=== PATIENT | female | born 1960 | race African-American/Black ===

== ENCOUNTER → 2016-03-08 | Outpatient (CLI) | payer BC ==
[2016-03-08 11:56] LABS: ABSOLUTE EOSINOPHILS # (AUTO) 0.1 10^3/uL (0.0-0.6); ABSOLUTE LYMPHOCYTES (AUTO) 1.5 10^3/uL (0.5-4.7); ABSOLUTE MONOCYTES (AUTO) 0.4 10^3/uL (0.1-1.4); ABSOLUTE NEUT (AUTO) 1.3 10^3/uL (1.7-8.2); BASOPHILS % (AUTO) 0.5 % (0-2); EOSINOPHILS % (AUTO) 3.4 % (0-6); HEMATOCRIT 36.2 % (36.0-47.0); HEMOGLOBIN 12.5 g/dL (12.0-15.5); HGB HCT DIFFERENCE 1.3; LYMPHOCYTES % (AUTO) 45.8 % (13-45); MEAN CORPUSCULAR HEMOGLOBIN 30.7 pg (27.0-33.4); MEAN CORPUSCULAR HGB CONC 34.4 g/dL (32.0-36.0); MEAN CORPUSCULAR VOLUME 89 fl (80-97); MONOCYTES % (AUTO) 11.5 % (3-13); RED BLOOD COUNT 4.06 10^6/uL (3.72-5.28); RED CELL DISTRIBUTION WIDTH 12.7 % (11.5-14.0); SEGMENTED NEUTROPHILS % (AUTO) 38.8 % (42-78); WHITE BLOOD COUNT 3.2 10^3/uL (4.0-10.5)
[2016-03-08 12:20] LABS: ALANINE AMINOTRANSFERASE 30 U/L (9-52); ALBUMIN 3.7 g/dL (3.5-5.0); ALKALINE PHOSPHATASE 91 U/L (38-126); ANION GAP 11 (5-19); ASPARTATE AMINO TRANSFERASE 33 U/L (14-36); BILIRUBIN,TOTAL 0.3 mg/dL (0.2-1.3); BLOOD UREA NITROGEN 20 mg/dL (7-20); CALCIUM 9.5 mg/dL (8.4-10.2); CARBON DIOXIDE 26 mmol/L (22-30); CHLORIDE 108 mmol/L (98-107); CHOLESTEROL 214.42 mg/dL (0-200); CREATININE RESULT 0.92 mg/dL (0.52-1.25); Direct HDL 35 mg/dL (>40); GLUCOSE 112 mg/dL (75-110); POTASSIUM 4.2 mmol/L (3.6-5.0); SODIUM 144.5 mmol/L (137-145); TOTAL PROTEIN 9.4 g/dL (6.3-8.2); TRIGLYCERIDES 88 mg/dL (<150)
[2016-03-08 12:31] LABS: DIRECT LDL 142 mg/dL (<100)
== END ==
LOC: OD 10:34
PROVIDERS: ATTEND Physician Assistant
DX: E13.9 Other specified diabetes mellitus without complications (principal); E66.9 Obesity, unspecified; E78.5 Hyperlipidemia, unspecified
CPT/HCPCS: 36415; 80053; 80061; 83036; 84443; 85025

== ENCOUNTER → 2016-07-08 | Outpatient (CLI) | payer BC ==
[2016-07-08 15:51] LABS: BLOOD UREA NITROGEN 19 mg/dL (7-20); CALCIUM 9.7 mg/dL (8.4-10.2); GLUCOSE 117 mg/dL (75-110)
[2016-07-08 15:52] LABS: ALANINE AMINOTRANSFERASE 85 U/L (9-52); ALBUMIN 3.9 g/dL (3.5-5.0); ALKALINE PHOSPHATASE 156 U/L (38-126); ANION GAP 11 (5-19); ASPARTATE AMINO TRANSFERASE 72 U/L (14-36); CARBON DIOXIDE 24 mmol/L (22-30); CHLORIDE 109 mmol/L (98-107); CREATININE RESULT 0.89 mg/dL (0.52-1.25); POTASSIUM 4.3 mmol/L (3.6-5.0); SODIUM 144.1 mmol/L (137-145)
[2016-07-08 15:53] LABS: BILIRUBIN,DIRECT 0.3 mg/dL (0.0-0.4); BILIRUBIN,TOTAL 0.5 mg/dL (0.2-1.3); CHOLESTEROL 157.48 mg/dL (0-200); DIRECT LDL 72 mg/dL (<100); TOTAL PROTEIN 9.7 g/dL (6.3-8.2); TRIGLYCERIDES 57 mg/dL (<150); VLDL CHOLESTEROL 11.4 mg/dL (10-31)
[2016-07-08 15:54] LABS: Direct HDL 37 mg/dL (>40)
[2016-07-08 15:59] LABS: ABSOLUTE EOSINOPHILS # (AUTO) 0.1 10^3/uL (0.0-0.6); ABSOLUTE LYMPHOCYTES (AUTO) 1.2 10^3/uL (0.5-4.7); ABSOLUTE MONOCYTES (AUTO) 0.3 10^3/uL (0.1-1.4); BASOPHILS % (AUTO) 0.7 % (0-2); EOSINOPHILS % (AUTO) 2.6 % (0-6); HEMATOCRIT 34.2 % (36.0-47.0); HEMOGLOBIN 11.7 g/dL (12.0-15.5); HGB HCT DIFFERENCE 0.9; LYMPHOCYTES % (AUTO) 33.6 % (13-45); MEAN CORPUSCULAR HEMOGLOBIN 30.3 pg (27.0-33.4); MEAN CORPUSCULAR HGB CONC 34.4 g/dL (32.0-36.0); MEAN CORPUSCULAR VOLUME 88 fl (80-97); MONOCYTES % (AUTO) 8.6 % (3-13); RED BLOOD COUNT 3.88 10^6/uL (3.72-5.28); RED CELL DISTRIBUTION WIDTH 12.7 % (11.5-14.0); SEGMENTED NEUTROPHILS % (AUTO) 54.5 % (42-78); WHITE BLOOD COUNT 3.6 10^3/uL (4.0-10.5)
== END ==
LOC: OD 11:23
PROVIDERS: ATTEND Physician Assistant
DX: E78.5 Hyperlipidemia, unspecified (principal); E13.9 Other specified diabetes mellitus without complications
CPT/HCPCS: 36415; 80053; 80061; 83036; 85025

== ENCOUNTER → 2016-07-27 | Outpatient (CLI) | payer BC ==
[2016-07-27 20:16] LABS: ALANINE AMINOTRANSFERASE 90 U/L (9-52); ALBUMIN 4.1 g/dL (3.5-5.0); ALKALINE PHOSPHATASE 146 U/L (38-126); ANION GAP 11 (5-19); ASPARTATE AMINO TRANSFERASE 69 U/L (14-36); BILIRUBIN,DIRECT 0.3 mg/dL (0.0-0.4); BILIRUBIN,TOTAL 0.5 mg/dL (0.2-1.3); BLOOD UREA NITROGEN 23 mg/dL (7-20); CALCIUM 10.2 mg/dL (8.4-10.2); CARBON DIOXIDE 24 mmol/L (22-30); CHLORIDE 110 mmol/L (98-107); CREATININE RESULT 1.15 mg/dL (0.52-1.25); GLUCOSE 92 mg/dL (75-110); POTASSIUM 4.1 mmol/L (3.6-5.0); SODIUM 145.4 mmol/L (137-145); TOTAL PROTEIN 10.3 g/dL (6.3-8.2)
== END ==
LOC: LAB 19:42
PROVIDERS: ATTEND Physician Assistant
DX: R94.5 Abnormal results of liver function studies (principal)
CPT/HCPCS: 36415; 80053

== ENCOUNTER → 2016-08-18 | Outpatient (CLI) | payer BC ==
--- NOTE | 2016-08-18 09:16 | RADIOLOGY REPORT (SQ) ---
EXAM DESCRIPTION: U/S ABDOMEN LIMITED W/O DOP COMPLETED DATE/TIME: 08/18/2016 8:41 am REASON FOR STUDY: ABN LFT R94.5 ABNORMAL RESULTS OF LIVER FUNCTION STUDIES COMPARISON: None. TECHNIQUE: Dynamic and static grayscale images acquired of the abdomen and recorded on PACS. Additio nal selected color Doppler and spectral images recorded. LIMITATIONS: Midline bowel gas FINDINGS: PANCREAS: Midline pancreas unremarkable LIVER: Mild diffuse increased echogenicity from diffuse hepatocellular disease. No focal masses. No biliary ductal dilatation. LIVER VASCULATURE: Normal directional flow of the main portal vein and hepatic veins. GALLBLADDER: No stones. Normal wall thickness. No pericholecystic fluid. ULTRASOUND-DETECTED JUAN'S SIGN: Negative. INTRAHEPATIC DUCTS AND COMMON DUCT: CBD and intrahepatic ducts normal caliber. No filling defects. D istal most common duct not well seen due to duodenum gas INFERIOR VENA CAVA: Not well seen AORTA: No aneurysm. RIGHT KIDNEY: Normal size. Normal echogenicity. No solid or suspicious masses. No hydronephrosis. No calcifications. PERITONEAL AND RIGHT PLEURAL SPACE: No ascites or effusions. OTHER: No other significant findings. IMPRESSION: Mild increased echogenicity of the liver, question diffuse hepatocellular disease. TECHNICAL DOCUMENTATION: JOB ID: [id number] [employer]- All Rights Reserved
== END ==
LOC: RAD 07:42
PROVIDERS: ATTEND Physician Assistant
DX: R94.5 Abnormal results of liver function studies (principal)
CPT/HCPCS: 76705

== ENCOUNTER → 2016-08-27 | Outpatient (CLI) | payer BC ==
[2016-08-27 13:16] LABS: ALANINE AMINOTRANSFERASE 55 U/L (9-52); ALBUMIN 3.9 g/dL (3.5-5.0); ALKALINE PHOSPHATASE 109 U/L (38-126); ANION GAP 13 (5-19); ASPARTATE AMINO TRANSFERASE 48 U/L (14-36); BILIRUBIN,DIRECT 0.3 mg/dL (0.0-0.4); BILIRUBIN,TOTAL 0.5 mg/dL (0.2-1.3); BLOOD UREA NITROGEN 17 mg/dL (7-20); CALCIUM 9.5 mg/dL (8.4-10.2); CARBON DIOXIDE 25 mmol/L (22-30); CHLORIDE 107 mmol/L (98-107); CREATININE RESULT 0.91 mg/dL (0.52-1.25); GLUCOSE 111 mg/dL (75-110); POTASSIUM 4.3 mmol/L (3.6-5.0); SODIUM 145.1 mmol/L (137-145); TOTAL PROTEIN 10.5 g/dL (6.3-8.2)
== END ==
LOC: OD 11:31
PROVIDERS: ATTEND Physician Assistant
DX: R94.5 Abnormal results of liver function studies (principal)
CPT/HCPCS: 36415; 80053; 80074

== ENCOUNTER → 2017-01-19 | Outpatient (CLI) | payer BC ==
[2017-01-19 11:54] LABS: ABSOLUTE EOSINOPHILS # (AUTO) 0.1 10^3/uL (0.0-0.6); ABSOLUTE LYMPHOCYTES (AUTO) 1.3 10^3/uL (0.5-4.7); ABSOLUTE MONOCYTES (AUTO) 0.2 10^3/uL (0.1-1.4); ABSOLUTE NEUT (AUTO) 1.1 10^3/uL (1.7-8.2); BASOPHILS % (AUTO) 1.1 % (0-2); EOSINOPHILS % (AUTO) 4.1 % (0-6); HEMATOCRIT 33.7 % (36.0-47.0); HEMOGLOBIN 11.8 g/dL (12.0-15.5); HGB HCT DIFFERENCE 1.7; LYMPHOCYTES % (AUTO) 47.5 % (13-45); MEAN CORPUSCULAR HEMOGLOBIN 31.4 pg (27.0-33.4); MEAN CORPUSCULAR VOLUME 90 fl (80-97); MONOCYTES % (AUTO) 7.8 % (3-13); RED BLOOD COUNT 3.77 10^6/uL (3.72-5.28); RED CELL DISTRIBUTION WIDTH 13.3 % (11.5-14.0); SEGMENTED NEUTROPHILS % (AUTO) 39.5 % (42-78); WHITE BLOOD COUNT 2.7 10^3/uL (4.0-10.5)
[2017-01-19 12:20] LABS: ALANINE AMINOTRANSFERASE 37 U/L (9-52); ALBUMIN 3.9 g/dL (3.5-5.0); ALKALINE PHOSPHATASE 90 U/L (38-126); ANION GAP 11 (5-19); ASPARTATE AMINO TRANSFERASE 39 U/L (14-36); BILIRUBIN,DIRECT 0.3 mg/dL (0.0-0.4); BILIRUBIN,TOTAL 0.5 mg/dL (0.2-1.3); BLOOD UREA NITROGEN 19 mg/dL (7-20); CALCIUM 9.2 mg/dL (8.4-10.2); CARBON DIOXIDE 28 mmol/L (22-30); CHLORIDE 108 mmol/L (98-107); CHOLESTEROL 224.55 mg/dL (0-200); CREATININE RESULT 0.98 mg/dL (0.52-1.25); Direct HDL 48 mg/dL (>40); GLUCOSE 112 mg/dL (75-110); POTASSIUM 3.8 mmol/L (3.6-5.0); SODIUM 147.3 mmol/L (137-145); TOTAL PROTEIN 8.9 g/dL (6.3-8.2); TRIGLYCERIDES 77 mg/dL (<150)
[2017-01-19 12:31] LABS: DIRECT LDL 130 mg/dL (<100)
== END ==
LOC: OD 09:42
PROVIDERS: ATTEND Physician Assistant
DX: E78.5 Hyperlipidemia, unspecified (principal); E13.9 Other specified diabetes mellitus without complications; E66.9 Obesity, unspecified
CPT/HCPCS: 36415; 80053; 80061; 83036; 84443; 85025

== ENCOUNTER → 2017-03-15 | Outpatient (CLI) | payer BC ==
[2017-03-15 22:16] LABS: ABSOLUTE EOSINOPHILS # (AUTO) 0.1 10^3/uL (0.0-0.6); ABSOLUTE LYMPHOCYTES (AUTO) 1.5 10^3/uL (0.5-4.7); ABSOLUTE MONOCYTES (AUTO) 0.3 10^3/uL (0.1-1.4); ABSOLUTE NEUT (AUTO) 1.5 10^3/uL (1.7-8.2); BASOPHILS % (AUTO) 0.7 % (0-2); EOSINOPHILS % (AUTO) 2.7 % (0-6); HEMATOCRIT 34.5 % (36.0-47.0); LYMPHOCYTES % (AUTO) 43.1 % (13-45); MEAN CORPUSCULAR HEMOGLOBIN 31.6 pg (27.0-33.4); MEAN CORPUSCULAR HGB CONC 34.7 g/dL (32.0-36.0); MEAN CORPUSCULAR VOLUME 91 fl (80-97); MONOCYTES % (AUTO) 9.4 % (3-13); PLATELET COUNT 202 10^3/uL (150-450); RED BLOOD COUNT 3.79 10^6/uL (3.72-5.28); RED CELL DISTRIBUTION WIDTH 13.2 % (11.5-14.0); SEGMENTED NEUTROPHILS % (AUTO) 44.1 % (42-78); TOTAL CELLS COUNTED % (AUTO) 100 %; WHITE BLOOD COUNT 3.5 10^3/uL (4.0-10.5)
== END ==
LOC: LAB 21:59
PROVIDERS: ATTEND Physician Assistant
DX: D72.819 Decreased white blood cell count, unspecified (principal)
CPT/HCPCS: 36415; 85025

== ENCOUNTER 2017-04-18 09:00 | Day surgery (SDC) | payer BC ==
[~2017-04-18 09:00] MED LIST: PROPOFOL INJ 200 MG/20 ML VIAL IV ONE
[2017-04-18] MEDS ORDERED: ONDANSETRON HCL INJ/PF 4 MG/2 ML SDV ONE (11:04)
[2017-04-18 11:46] VITALS: BP 129/79
--- NOTE | 2017-04-18 14:40 | Operative Report ---
Operative Report DATE OF SURGERY: 04/18/17 Operative Report: The risks, benefits and alternatives of the procedure including risks of bleeding, perforation requiring surgery are explained to the patient in detail and informed consent was obtained. Patient was taken back to the endoscopy suite and placed in the left, lateral decubital position. Timeout was called. Propofol medications administered. A rectal examination is done which did not reveal any masses, tears or fissures. An Olympus videoscope was inserted into the patient's rectum. The scope was then carefully advanced all the way to the cecum. The cecum was identified by the usual anatomical landmarks including the ileocecal valve as well as the appendiceal office. Photodocumentation is obtained. Scope was then sequentially pulled back via the various segments of the colon including the ascending colon, hepatic flexure, transverse colon, splenic flexure, descending colon finding to the rectosigmoid portions of the colon. Retroflexion maneuvers performed. PREOPERATIVE DIAGNOSIS: Personal history of polyps POSTOPERATIVE DIAGNOSIS: Colon polyp is removed via biopsy forceps. Diverticulosis. Internal hemorrhoids OPERATION: Colonoscopy with biopsy SURGEON: SEBASTIÁN WAGNER ANESTHESIA: LMAC TISSUE REMOVED OR ALTERED: As noted above. COMPLICATIONS: None. ESTIMATED BLOOD LOSS: None. INTRAOPERATIVE FINDINGS: As noted above. PROCEDURE: Patient tolerated procedure well. No immediate postprocedure complications are noted. Patient discharged in good condition. Discharge date 04/18/2017. Discharge diet: Regular. Discharge activity: Regular. 2-3 week follow-up to discuss findings. Patient is instructed call the office or proceed to the emergency room should there be any further problems or questions. 3-5 year surveillance colonoscopy. We will wait on exact pathology.
== END 2017-04-18 11:45 | disposition home or self-care (01) ==
LOC: END 09:00
PROVIDERS: ATTEND Internal Medicine Gastroenterology
PROC: 0DBP8ZX Excision of Rectum, Via Natural or Artificial Opening Endoscopic, Diagnostic (ICD-10-PCS; principal; 2017-04-18 11:00)
DX: Z12.11 Encounter for screening for malignant neoplasm of colon (principal); K63.5 Polyp of colon; K57.30 Diverticulosis of large intestine without perforation or abscess without bleeding; K64.8 Other hemorrhoids; R01.1 Cardiac murmur, unspecified; E66.9 Obesity, unspecified; Z79.899 Other long term (current) drug therapy; Z68.41 Body mass index [BMI] 40.0-44.9, adult
CPT/HCPCS: 45380; 88305 ×2; J2405; J2704; 811

== ENCOUNTER → 2017-07-13 | Outpatient (CLI) | payer BC ==
[2017-07-13 22:21] LABS: ABSOLUTE EOSINOPHILS # (AUTO) 0.2 10^3/uL (0.0-0.6); ABSOLUTE LYMPHOCYTES (AUTO) 1.4 10^3/uL (0.5-4.7); ABSOLUTE MONOCYTES (AUTO) 0.3 10^3/uL (0.1-1.4); BASOPHILS % (AUTO) 0.6 % (0-2); EOSINOPHILS % (AUTO) 4.6 % (0-6); HEMOGLOBIN 11.8 g/dL (12.0-15.5); LYMPHOCYTES % (AUTO) 36.9 % (13-45); MEAN CORPUSCULAR HGB CONC 34.8 g/dL (32.0-36.0); MEAN CORPUSCULAR VOLUME 89 fl (80-97); MONOCYTES % (AUTO) 7.5 % (3-13); PLATELET COUNT 208 10^3/uL (150-450); RED BLOOD COUNT 3.81 10^6/uL (3.72-5.28); SEGMENTED NEUTROPHILS % (AUTO) 50.4 % (42-78); TOTAL CELLS COUNTED % (AUTO) 100 %; WHITE BLOOD COUNT 3.9 10^3/uL (4.0-10.5)
[2017-07-13 22:28] LABS: ALANINE AMINOTRANSFERASE 34 U/L (9-52); ALBUMIN 4.2 g/dL (3.5-5.0); ALKALINE PHOSPHATASE 93 U/L (38-126); ANION GAP 12 (5-19); ASPARTATE AMINO TRANSFERASE 40 U/L (14-36); BILIRUBIN,DIRECT 0.3 mg/dL (0.0-0.4); BILIRUBIN,TOTAL 0.3 mg/dL (0.2-1.3); BLOOD UREA NITROGEN 23 mg/dL (7-20); CALCIUM 9.5 mg/dL (8.4-10.2); CARBON DIOXIDE 25 mmol/L (22-30); CHLORIDE 109 mmol/L (98-107); GLUCOSE 110 mg/dL (75-110); POTASSIUM 4.3 mmol/L (3.6-5.0); SODIUM 146.2 mmol/L (137-145); TOTAL PROTEIN 10.5 g/dL (6.3-8.2); TRIGLYCERIDES 117 mg/dL (<150)
[2017-07-13 22:40] LABS: DIRECT LDL 102 mg/dL (<100)
== END ==
LOC: LAB 22:03
PROVIDERS: ATTEND Physician Assistant
DX: E78.5 Hyperlipidemia, unspecified (principal); E13.9 Other specified diabetes mellitus without complications
CPT/HCPCS: 36415; 80053; 80061; 83036; 85025

== ENCOUNTER → 2017-10-17 | Outpatient (CLI) | payer BC ==
[2017-10-17 10:14] LABS: ABSOLUTE EOSINOPHILS # (AUTO) 0.2 10^3/uL (0.0-0.6); ABSOLUTE LYMPHOCYTES (AUTO) 1.4 10^3/uL (0.5-4.7); ABSOLUTE MONOCYTES (AUTO) 0.3 10^3/uL (0.1-1.4); BASOPHILS % (AUTO) 0.7 % (0-2); EOSINOPHILS % (AUTO) 4.3 % (0-6); HEMATOCRIT 33.7 % (36.0-47.0); HEMOGLOBIN 11.9 g/dL (12.0-15.5); LYMPHOCYTES % (AUTO) 35.8 % (13-45); MEAN CORPUSCULAR HEMOGLOBIN 31.6 pg (27.0-33.4); MEAN CORPUSCULAR HGB CONC 35.2 g/dL (32.0-36.0); MEAN CORPUSCULAR VOLUME 90 fl (80-97); MONOCYTES % (AUTO) 7.8 % (3-13); PLATELET COUNT 207 10^3/uL (150-450); RED BLOOD COUNT 3.76 10^6/uL (3.72-5.28); RED CELL DISTRIBUTION WIDTH 12.6 % (11.5-14.0); SEGMENTED NEUTROPHILS % (AUTO) 51.4 % (42-78); TOTAL CELLS COUNTED % (AUTO) 100 %; WHITE BLOOD COUNT 3.9 10^3/uL (4.0-10.5)
[2017-10-17 10:49] LABS: ALANINE AMINOTRANSFERASE 18 U/L (9-52); ALBUMIN 3.8 g/dL (3.5-5.0); ALKALINE PHOSPHATASE 84 U/L (38-126); ANION GAP 12 (5-19); ASPARTATE AMINO TRANSFERASE 30 U/L (14-36); BILIRUBIN,DIRECT 0.2 mg/dL (0.0-0.4); BILIRUBIN,TOTAL 0.3 mg/dL (0.2-1.3); BLOOD UREA NITROGEN 17 mg/dL (7-20); CALCIUM 9.2 mg/dL (8.4-10.2); CARBON DIOXIDE 22 mmol/L (22-30); CHLORIDE 112 mmol/L (98-107); CHOLESTEROL 170.57 mg/dL (0-200); GLUCOSE 119 mg/dL (75-110); POTASSIUM 4.2 mmol/L (3.6-5.0); SODIUM 145.7 mmol/L (137-145); TOTAL PROTEIN 10.2 g/dL (6.3-8.2); TRIGLYCERIDES 67 mg/dL (<150)
[2017-10-17 11:00] LABS: DIRECT LDL 94 mg/dL (<100)
[2017-10-18 10:20] LABS: IRON(TIBC) 80.1 ug/dL (37-170)
== END ==
LOC: LAB 10:01
PROVIDERS: ATTEND Family Medicine
DX: N28.9 Disorder of kidney and ureter, unspecified (principal); E13.9 Other specified diabetes mellitus without complications; E78.5 Hyperlipidemia, unspecified; D64.9 Anemia, unspecified
CPT/HCPCS: 36415; 80053; 80061; 82607; 82728; 83036; 83540; 83550; 85025

== ENCOUNTER → 2017-11-25 | Outpatient (CLI) | payer BC ==
[2017-11-25 19:18] LABS: ABSOLUTE EOSINOPHILS # (AUTO) 0.1 10^3/uL (0.0-0.6); ABSOLUTE LYMPHOCYTES (AUTO) 1.4 10^3/uL (0.5-4.7); ABSOLUTE MONOCYTES (AUTO) 0.4 10^3/uL (0.1-1.4); EOSINOPHILS % (AUTO) 3.7 % (0-6); HEMATOCRIT 33.3 % (36.0-47.0); LYMPHOCYTES % (AUTO) 34.9 % (13-45); MEAN CORPUSCULAR HEMOGLOBIN 31.8 pg (27.0-33.4); MEAN CORPUSCULAR VOLUME 88 fl (80-97); MONOCYTES % (AUTO) 9.3 % (3-13); PLATELET COUNT 217 10^3/uL (150-450); RED BLOOD COUNT 3.77 10^6/uL (3.72-5.28); RED CELL DISTRIBUTION WIDTH 12.8 % (11.5-14.0); SEGMENTED NEUTROPHILS % (AUTO) 51.1 % (42-78); TOTAL CELLS COUNTED % (AUTO) 100 %
[2017-11-25 21:16] LABS: FOLATE 4.47 ng/mL (>2.76)
== END ==
LOC: LAB 19:06
PROVIDERS: ATTEND Physician Assistant
DX: D51.9 Vitamin B12 deficiency anemia, unspecified (principal)
CPT/HCPCS: 36415; 82607; 82746; 85025

== ENCOUNTER → 2017-11-30 | Outpatient (CLI) | payer BC ==
--- NOTE | 2017-11-30 09:09 | RADIOLOGY REPORT (SQ) ---
EXAM DESCRIPTION: CT BONE LENGTH COMPLETED DATE/TIME: 11/30/2017 8:55 am REASON FOR STUDY: LLD Q72.819 CONGENITAL SHORTENING OF UNSPECIFIED LOWER LIMB COMPARISON: None. TECHNIQUE: CT scanogram of the bilateral lower extremities is performed including pelvis to ankles. Measurements of femur, tibia, and entire lower extremities performed by the radiologist and saved to PACS. All CT scanners at this facility use dose modulation, iterative reconstruction, and/or weight based d osing when appropriate to reduce radiation dose to as low as reasonably achievable (ALARA). [facility]: Dose Right [facility]: CareDose [facility]: Dose Right [facility]: Teradose 4D [facility]: Doximity RADIATION DOSE: 0.01 mGy. LIMITATIONS: None. FINDINGS: RIGHT: FEMUR: 46.2 cm. TIBIA: 37.5 cm. TOTAL RIGHT LOWER EXTREMITY LENGTH: 84 cm. LEFT: FEMUR: 46.6 cm. TIBIA: 37.5 cm. TOTAL LEFT LOWER EXTREMITY LENGTH: 84.3 cm. IMPRESSION: LEG LENGTH MEASUREMENTS DETAILED ABOVE. TECHNICAL DOCUMENTATION: JOB ID: [id number] Quality ID # [id number]: Final reports with documentation of one or more dose reduction techniques (e.g., Au tomated exposure control, adjustment of the mA and/or kV according to patient size, use of iterative reconstruction technique) 2010 [employer]- All Rights Reserved Reading location - IP/workstation name: [email or web address]
== END ==
LOC: RAD 08:38
PROVIDERS: ATTEND Podiatrist Foot & Ankle Surgery
DX: Q72.819 Congenital shortening of unspecified lower limb (principal)
CPT/HCPCS: 77073

== ENCOUNTER → 2017-12-27 | Outpatient (CLI) | payer BC ==
[2017-12-27 20:43] LABS: ABSOLUTE EOSINOPHILS # (AUTO) 0.1 10^3/uL (0.0-0.6); ABSOLUTE LYMPHOCYTES (AUTO) 1.3 10^3/uL (0.5-4.7); ABSOLUTE MONOCYTES (AUTO) 0.3 10^3/uL (0.1-1.4); ABSOLUTE NEUT (AUTO) 1.7 10^3/uL (1.7-8.2); BASOPHILS % (AUTO) 1.3 % (0-2); EOSINOPHILS % (AUTO) 2.7 % (0-6); HEMATOCRIT 35.5 % (36.0-47.0); HEMOGLOBIN 12.4 g/dL (12.0-15.5); LYMPHOCYTES % (AUTO) 38.6 % (13-45); MEAN CORPUSCULAR HEMOGLOBIN 31.3 pg (27.0-33.4); MEAN CORPUSCULAR VOLUME 90 fl (80-97); MONOCYTES % (AUTO) 7.9 % (3-13); PLATELET COUNT 214 10^3/uL (150-450); RED BLOOD COUNT 3.96 10^6/uL (3.72-5.28); RED CELL DISTRIBUTION WIDTH 13.1 % (11.5-14.0); SEGMENTED NEUTROPHILS % (AUTO) 49.5 % (42-78); TOTAL CELLS COUNTED % (AUTO) 100 %; WHITE BLOOD COUNT 3.4 10^3/uL (4.0-10.5)
== END ==
LOC: LAB 20:24
PROVIDERS: ATTEND Physician Assistant
DX: D51.9 Vitamin B12 deficiency anemia, unspecified (principal)
CPT/HCPCS: 36415; 82607; 85025

== ENCOUNTER → 2018-02-16 | Outpatient (CLI) | payer BC ==
[2018-02-16 23:30] LABS: ALANINE AMINOTRANSFERASE 16 U/L (9-52); ALBUMIN 4.1 g/dL (3.5-5.0); ALKALINE PHOSPHATASE 90 U/L (38-126); ANION GAP 10 (5-19); ASPARTATE AMINO TRANSFERASE 35 U/L (14-36); BILIRUBIN,DIRECT 0.2 mg/dL (0.0-0.4); BILIRUBIN,TOTAL 0.3 mg/dL (0.2-1.3); BLOOD UREA NITROGEN 24 mg/dL (7-20); CALCIUM 9.6 mg/dL (8.4-10.2); CARBON DIOXIDE 22 mmol/L (22-30); CHLORIDE 110 mmol/L (98-107); CHOLESTEROL 183.32 mg/dL (0-200); GLUCOSE 123 mg/dL (75-110); SODIUM 142.1 mmol/L (137-145); TOTAL PROTEIN 10.2 g/dL (6.3-8.2); TRIGLYCERIDES 97 mg/dL (<150)
[2018-02-16 23:41] LABS: DIRECT LDL 105 mg/dL (<100)
== END ==
LOC: LAB 23:04
PROVIDERS: ATTEND Family Medicine
DX: E78.5 Hyperlipidemia, unspecified (principal); E13.9 Other specified diabetes mellitus without complications
CPT/HCPCS: 36415; 80053; 80061; 83036

== ENCOUNTER → 2018-12-21 | Outpatient (CLI) | payer BC ==
--- NOTE | 2018-12-21 17:00 | RADIOLOGY REPORT (SQ) ---
EXAM DESCRIPTION: CT HEAD WITHOUT COMPLETED DATE/TIME: 12/21/2018 4:51 pm REASON FOR STUDY: (R42)DIZZINESS AND GIDDINESS R42 DIZZINESS AND GIDDINESS COMPARISON: None. TECHNIQUE: Axial images acquired through the brain without intravenous contrast. Images reviewed wi th bone, brain and subdural windows. Additional sagittal and coronal reconstructions were generated. Images stored on PACS. All CT scanners at this facility use dose modulation, iterative reconstruction, and/or weight based d osing when appropriate to reduce radiation dose to as low as reasonably achievable (ALARA). [facility]: Dose Right [facility]: CareDose [facility]: Dose Right [facility]: Teradose 4D [facility]: Smart Perfectore RADIATION DOSE: CT Rad equipment meets quality standard of care and radiation dose reduction techniq ues were employed. CTDIvol: 53.2 mGy. DLP: 1070 mGy-cm. mGy. LIMITATIONS: None. FINDINGS: VENTRICLES: Normal size and contour. CEREBRUM: No masses. No hemorrhage. No midline shift. No evidence for acute infarction. Normal gra y/white matter differentiation. No areas of low density in the white matter. CEREBELLUM: No masses. No hemorrhage. No alteration of density. No evidence for acute infarction. EXTRAAXIAL SPACES: No fluid collections. No masses. ORBITS AND GLOBE: No intra- or extraconal masses. Normal contour of globe without masses. CALVARIUM: No fracture. PARANASAL SINUSES: No fluid or mucosal thickening. SOFT TISSUES: No mass or hematoma. OTHER: No other significant finding. IMPRESSION: NORMAL BRAIN CT WITHOUT CONTRAST. EVIDENCE OF ACUTE STROKE: NO. COMMENT: Quality ID # [id number]: Final reports with documentation of one or more dose reduction techniques (e.g., Automated exposure control, adjustment of the mA and/or kV according to patient size, use of iterative reconstruction technique) TECHNICAL DOCUMENTATION: JOB ID: [id number] [employer]- All Rights Reserved Reading location - IP/workstation name: [email or web address]
== END ==
LOC: RAD 16:23
PROVIDERS: ATTEND Family Medicine
DX: R42 Dizziness and giddiness (principal)
CPT/HCPCS: 70450

== ENCOUNTER → 2019-11-07 | Outpatient (CLI) | payer BC ==
--- NOTE | 2019-11-07 15:01 | RADIOLOGY REPORT (SQ) ---
EXAM DESCRIPTION: MRI CERVICAL SPINE WITHOUT IMAGES COMPLETED DATE/TIME: 11/07/2019 2:30 pm REASON FOR STUDY: M54.12 RADICULOPATHY, CERVICAL REGION M54.12 RADICULOPATHY, CERVICAL REGION COMPARISON: None. TECHNIQUE: Sagittal and Axial imaging includes T1, T2, STIR and gradient echo sequences. LIMITATIONS: None. FINDINGS: ALIGNMENT: Normal. VERTEBRAE: Intact. BONE MARROW: Normal. No marrow replacement or reactive changes. DISCS: Disc heights are well maintained. This loss of normal water signal throughout the cervical sp ine consistent with desiccation. HARDWARE: None in the spine. CORD AND BASE OF BRAIN: Normal in size and signal intensity. SOFT TISSUES: No soft tissue masses. C1-C2: No significant spinal stenosis. C2-C3: No significant spinal stenosis or exit foraminal stenosis. C3-C4: Minimal annular bulge with slight effacement anterior thecal sac. No central stenosis or fora rashaun narrowing. C4-C5: No significant spinal stenosis or exit foraminal stenosis. C5-C6: Mild annular disc bulging with effacement anterior thecal sac. No significant central stenosi s or foraminal narrowing. C6-C7: No significant spinal stenosis or exit foraminal stenosis. C7-T1: No significant spinal stenosis or exit foraminal stenosis. UPPER THORACIC: Incompletely imaged. No significant spinal stenosis or exit foraminal stenosis. OTHER: No other significant finding. IMPRESSION: Mild disc degenerative disease most marked at C3-4 and C5-C6. No high-grade central vikas nosis or nerve root impingement. TECHNICAL DOCUMENTATION: JOB ID: [id number] 2010 [email or web address]- All Rights Reserved Reading location - IP/workstation name: [email or web address]
== END ==
LOC: RAD 12:46
PROVIDERS: ATTEND Orthopaedic Surgery
DX: M50.122 Cervical disc disorder at C5-C6 level with radiculopathy (principal)
CPT/HCPCS: 72141

== ENCOUNTER 2019-11-18 19:54 | Inpatient (IN) | payer BC ==
--- NOTE | 2019-11-18 20:50 | ER Document Report ---
ED Medical Screen (RME) - General Chief Complaint: Pedal Edema Stated Complaint: PAIN EXTREMITY Time Seen by Provider: 11/18/19 20:33 Primary Care Provider: MARCELINO CORDOVA MD [Primary Care Provider] - Follow up as needed Notes: HPI: Bilateral leg pain numbness and tingling in the feet for 1 week. Patient had a fall today landing on her gluteal region complains of low back pain. Patient reports a history of prediabetes. Saw her PCP 6 weeks ago with a normal exam but no lab work was done PHYSICAL EXAMINATION: There is no visible swelling to the bilateral lower extremities. Mild tenderness over the anterior portions of the bilateral tibial regions and also tenderness on the plantar aspects of the feet. No visible redness. No calf pain. Patient is noted to be tachycardic I have greeted and performed a rapid initial assessment of this patient. A comprehensive ED assessment and evaluation of the patient, analysis of test results and completion of medical decision making process will be conducted by an additional ED providers. TRAVEL OUTSIDE OF THE [place] IN LAST 30 DAYS: No - Related Data Allergies/Adverse Reactions: No Known Allergies Allergy (Verified 04/18/17 09:12) Past Medical History - Past Medical History Cardiac Medical History: Reports: Hx Coronary Artery Disease Denies: Hx Heart Attack, Hx Hypertension Pulmonary Medical History: Denies: Hx Asthma, Hx Bronchitis, Hx COPD, Hx Pneumonia Neurological Medical History: Denies: Hx Cerebrovascular Accident, Hx Seizures Musculoskeltal Medical History: Denies Hx Arthritis - Immunizations Hx Diphtheria, Pertussis, Tetanus Vaccination: Yes Physical Exam - Vital signs Vitals: Temp Pulse Resp BP Pulse Ox 99.2 F 119 H 20 149/88 H 97 11/18/19 19:59 11/18/19 19:59 11/18/19 19:59 11/18/19 19:59 11/18/19 19:59 Course - Vital Signs Vital signs: Temp Pulse Resp BP Pulse Ox 99.2 F 119 H 20 149/88 H 97 11/18/19 19:59 11/18/19 19:59 11/18/19 19:59 11/18/19 19:59 11/18/19 19:59 Doctor's Discharge - Discharge Referrals: MARCELINO CORDOVA MD [Primary Care Provider] - Follow up as needed
--- NOTE | 2019-11-18 21:53 | RADIOLOGY REPORT (SQ) ---
5 VIEWS LUMBAR SPINE HISTORY: Lower back pain. COMPARISON: None. FINDINGS: No acute compression fracture is seen. There is normal lumbar alignment. The disc spaces and facet joints are intact. The sacroiliac joints are preserved. No evidence of spondylolysis on the oblique views. IMPRESSION: No acute lumbar findings are seen.
[2019-11-18 22:12] LABS: ABSOLUTE LYMPHOCYTES (AUTO) 0.7 10^3/uL (0.5-4.7); ABSOLUTE MONOCYTES (AUTO) 0.2 10^3/uL (0.1-1.4); BASOPHILS % (AUTO) 0.3 % (0-2); MEAN CORPUSCULAR HGB CONC 34.1 g/dL (32.0-36.0)
[2019-11-18 22:25] LABS: ALBUMIN 3.8 g/dL (3.5-5.0); ALKALINE PHOSPHATASE 81 U/L (38-126); ANION GAP 10 (5-19); ASPARTATE AMINO TRANSFERASE 48 U/L (14-36); BILIRUBIN,DIRECT 0.4 mg/dL (0.0-0.4); BILIRUBIN,TOTAL 0.5 mg/dL (0.2-1.3); BLOOD UREA NITROGEN 59 mg/dL (7-20); CALCIUM 10.3 mg/dL (8.4-10.2); CARBON DIOXIDE 21 mmol/L (22-30); CHLORIDE 109 mmol/L (98-107); GLUCOSE 103 mg/dL (75-110); POTASSIUM 5.7 mmol/L (3.6-5.0); TOTAL PROTEIN 10.1 g/dL (6.3-8.2)
[2019-11-18 22:31] LABS: ABSOLUTE NEUT (AUTO) 3.7 10^3/uL (1.7-8.2); HEMATOCRIT 28.7 % (36.0-47.0); HEMOGLOBIN 9.8 g/dL (12.0-15.5); LYMPHOCYTES % (AUTO) 15.5 % (13-45); MEAN CORPUSCULAR HEMOGLOBIN 30.5 pg (27.0-33.4); MEAN CORPUSCULAR VOLUME 89 fl (80-97); MONOCYTES % (AUTO) 4.3 % (3-13); PLATELET COUNT 179 10^3/uL (150-450); RED BLOOD COUNT 3.21 10^6/uL (3.72-5.28); RED CELL DISTRIBUTION WIDTH 12.5 % (11.5-14.0); SEGMENTED NEUTROPHILS % (AUTO) 79.9 % (42-78); TOTAL CELLS COUNTED % (AUTO) 100 %; WHITE BLOOD COUNT 4.7 10^3/uL (4.0-10.5)
[2019-11-18 23:36] LABS: APPEARANCE,URINE CLEAR; BILIRUBIN,URINE NEGATIVE (NEGATIVE); COLOR,URINE YELLOW; GLUCOSE, URINE NEGATIVE (NEGATIVE); KETONES,URINE TRACE mg/dL (NEGATIVE); LEUKOCYTE ESTERASE,URINE NEGATIVE (NEGATIVE); NITRITE,URINE NEGATIVE (NEGATIVE); PROTEIN,URINE 100 mg/dL (NEGATIVE); URINE SPECIFIC GRAVITY 1.017; UROBILINOGEN,URINE NEGATIVE mg/dL (<2.0)
--- NOTE | 2019-11-19 00:37 | ER Document Report ---
ED Extremity Problem, Lower - General Chief Complaint: Pedal Edema Stated Complaint: PAIN EXTREMITY Time Seen by Provider: 11/18/19 20:33 Primary Care Provider: MARCELINO CORDOVA MD [NO LOCAL MD] - Follow up as needed Mode of Arrival: Ambulatory Information source: Patient, Relative - sister Stanton Notes: 11/18/19 20:32 - ED [facility]: [id number] : 1960 Patient Age: 59 Addendum entered by SARAH WHITESIDE RN 11/18/19 20:39: patient also reports falling on her butt. Original Note: patient presents to ED via EMS for c/o bilateral pedal edema and pain. patient states her feet have been swollen for a couple of weeks and has progressively gotten worse. patient reports feeling like pins and needles on the bottoms of her feet. patient states she was walking in the front porch tonight when she collapsed because of the pain. patient brought to [facility] via wheelchair, alert and oriented, in NAD. ED Medical Screen (EMILIE notes) - General Chief Complaint: Pedal Edema Stated Complaint: PAIN EXTREMITY Time Seen by Provider: 11/18/19 20:33 Primary Care Provider: MARCELINO CORDOVA MD [Primary Care Provider] - Follow up as needed Notes: HPI: Bilateral leg pain numbness and tingling in the feet for 1 week. Patient had a fall today landing on her gluteal region complains of low back pain. Patient reports a history of prediabetes. Saw her PCP 6 weeks ago with a normal exam but no lab work was done PHYSICAL EXAMINATION: There is no visible swelling to the bilateral lower extremities. Mild tenderness over the anterior portions of the bilateral tibial regions and also tenderness on the plantar aspects of the feet. No visible redness. No calf pain. 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 She also complains of carpal tunnel bilateral hands with fusiform edema to his fingers. She was checked for rheumatoid arthritis several years ago with Dr. Peña and this was negative. She is not checked herself while working in the lab. She denies any chest pain or shortness of breath but is tachycardic upon arrival with low-grade fever of 99 with a blood pressure 172/91. She had a negative LS spine done as ordered by Emilie. Patient's BUN and creatinine are also higher. TRAVEL OUTSIDE OF THE [place] IN LAST 30 DAYS: No - HPI Patient complains to provider of: Altered sensation, Pain, Swelling Location: Foot, Leg Occurred: Other - This week worsening pain and symptoms Where: Home, Work Onset/Duration: Sudden, Persistent, Worse Quality of pain: Achy Severity: Severe Pain Level: 4 Context: Fell Recent injury: Yes - Related Data Allergies/Adverse Reactions: No Known Allergies Allergy (Verified 04/18/17 09:12) Past Medical History - General Information source: Patient - Social History Smoking Status: Never Smoker Cigarette use (# per day): No Chew tobacco use (# tins/day): No Smoking Education Provided: No Frequency of alcohol use: None Drug Abuse: None Lives with: Family Family History: Reviewed & Not Pertinent Patient has suicidal ideation: No Patient has homicidal ideation: No - Past Medical History Cardiac Medical History: Reports: Hx Coronary Artery Disease Denies: Hx Heart Attack, Hx Hypertension Pulmonary Medical History: Denies: Hx Asthma, Hx Bronchitis, Hx COPD, Hx Pneumonia Neurological Medical History: Denies: Hx Cerebrovascular Accident, Hx Seizures Musculoskeletal Medical History: Denies Hx Arthritis - Immunizations Hx Diphtheria, Pertussis, Tetanus Vaccination: Yes Hx Pneumococcal Vaccination: 03/24/17 Review of Systems - Review of Systems Constitutional: See HPI, Fever, Weakness, Recent illness EENT: No symptoms reported Cardiovascular: See HPI, Palpitations Respiratory: No symptoms reported Gastrointestinal: No symptoms reported Genitourinary: No symptoms reported Female Genitourinary: No symptoms reported Musculoskeletal: No symptoms reported Skin: No symptoms reported Hematologic/Lymphatic: No symptoms reported Neurological/Psychological: No symptoms reported Physical Exam - Vital signs Vitals: Temp Pulse Resp BP Pulse Ox 99.2 F 119 H 20 149/88 H 97 11/18/19 19:59 11/18/19 19:59 11/18/19 19:59 11/18/19 19:59 11/18/19 19:59 Interpretation: Hypertensive, Tachycardic, Febrile - General General appearance: Anxious - HEENT Head: Normocephalic, Atraumatic Eyes: Normal Pupils: PERRL Nasal: Normal Mouth/Lips: Normal Mucous membranes: Normal Pharynx: Normal Neck: Normal - Respiratory Respiratory status: No respiratory distress Chest status: Nontender Breath sounds: Normal Chest palpation: Normal - Cardiovascular Rhythm: Tachycardia Heart sounds: Normal auscultation Murmur: No - Abdominal Inspection: Normal Distension: No distension Bowel sounds: Normal Tenderness: Nontender Organomegaly: No organomegaly - Rectal Hemorrhoids: Other - deferred - Genitourinary Bimanuel exam: Other - deferred - Back Back: Tender - Extremities General upper extremity: Tender, Edema - fusiform, Other - pos rad pulses General lower extremity: Tender, Edema, Other - pos DP pulses Course - Vital Signs Vital signs: Temp Pulse Resp BP Pulse Ox 99.2 F 119 H 20 149/88 H 97 11/18/19 19:59 11/18/19 19:59 11/18/19 19:59 11/18/19 19:59 11/18/19 19:59 - Laboratory Result Diagrams: 11/18/19 21:50 11/18/19 21:50 Laboratory results interpreted by me: 11/18/19 11/18/19 11/18/19 21:50 21:50 23:10 RBC 3.21 L Hgb 9.8 L Hct 28.7 L Seg Neutrophils % 79.9 H Potassium 5.7 H Chloride 109 H Carbon Dioxide 21 L BUN 59 H Creatinine 1.90 H Est GFR ( Amer) 33 L Est GFR (MDRD) Non-Af 27 L Calcium 10.3 H AST 48 H Total Protein 10.1 H Urine Protein 100 H Urine Ketones TRACE H Urine Blood MODERATE H - Diagnostic Test Radiology reviewed: Reports reviewed Critical Care Note - Critical Care Note Comments: I spoke with Dr. Blakely (on for DrPatel)at 00 55 and he advises admission. Uric acid rheumatoid arthritis and MANJINDER tests were obtained. Patient was given Decadron Toradol and fentanyl 50 IV Discharge - Discharge Clinical Impression: Rheumatoid arthritis flare Arthralgia Qualifiers: Joint pain location: hand Laterality: bilateral Qualified Code(s): M25.541 - Pain in joints of right hand Condition: Stable Disposition: ADMITTED INPATIENT Admitting Provider: Reddy Unit Admitted: Medical Floor Referrals: MARCELINO CORDOVA MD [NO LOCAL MD] - Follow up as needed
[2019-11-19] MEDS ORDERED: SODIUM POLYSTYRENE SULFONATE 15 GM/60 ML PO ONE (00:51)
[2019-11-19] MEDS ORDERED: DEXAMETHASONE SOD PHOS INJ 10 MG/1 ML VIAL IV ONE (00:51)
[2019-11-19] MEDS ORDERED: KETOROLAC TROMETHAMINE INJ/PF 30 MG/1 ML SDV IV ONE (00:55)
[2019-11-19] MEDS ORDERED: FENTANYL CITRATE INJ/PF 100 MCG/2 ML AMPUL IV ONE (00:57)
--- NOTE | 2019-11-19 01:22 | RADIOLOGY REPORT (SQ) ---
EXAM DESCRIPTION: XR PELVIS 1 VIEW COMPLETED DATE/TME: 11/19/2019 00:33 CLINICAL HISTORY: 59 years, Female, fall COMPARISON: None. NUMBER OF VIEWS: TECHNIQUE: LIMITATIONS: None. FINDINGS: No fracture or dislocation. Mineralization of bone appears normal. IMPRESSION: No fracture or dislocation. copyright 2010 [employer]- All Rights Reserved
--- NOTE | 2019-11-19 01:27 | RADIOLOGY REPORT (SQ) ---
EXAM DESCRIPTION: XR CHEST 1 VIEW COMPLETED DATE/TME: 11/19/2019 00:32 CLINICAL HISTORY: 59 years, Female, fall, edema COMPARISON: None. NUMBER OF VIEWS: TECHNIQUE: LIMITATIONS: None. FINDINGS: No evidence of pulmonary infiltrate or pleural effusion. No evidence of pneumothorax. The heart and mediastinum are unremarkable. Pulmonary vascularity appears normal. There are atherosclerotic changes and tortuosity of the thoracic aorta. No gross evidence of fracture. IMPRESSION: No traumatic abnormality. copyright 2010 [employer]- All Rights Reserved
--- NOTE | 2019-11-19 02:13 | EKG REPORT ---
SEVERITY:- OTHERWISE NORMAL ECG - SINUS TACHYCARDIA : Confirmed by: Ute Harrington MD 19-Nov-2019 02:12:32
[2019-11-19] MEDS ORDERED: HEPARIN SOD (PORCINE) 5,000 UNIT/ML 1 ML VIAL SUBCUT ONE (04:30)
[2019-11-19 04:43] LABS: FREE T4 (FREE THYROXINE) 1.61 ng/dL (0.78-2.19)
[2019-11-19 04:57] LABS: THYROID STIMULATING HORMONE 1.47 uIU/mL (0.47-4.68)
--- NOTE | 2019-11-19 05:08 | RADIOLOGY REPORT (SQ) ---
Ultrasound retroperitoneum limited on 11/19/2019 Clinical indications: Acute kidney injury COMPARISON: None FINDINGS: Multiple sonographic images are obtained throughout the kidneys and bladder, both transverse and sagittal images are obtained. Prevoid bladder volume measures 47 mL. No bladder wall thickening or intraluminal filling defect is noted. Neither ureteral jet was visualized. Right kidney measures approximately 9.1 cm in greatest pole to pole length. Left kidney measures approximately 9.3 cm in greatest itky-dr-ryyz length. Kidneys appear normal in size and morphology and without hydronephrosis. IMPRESSION: Essentially unremarkable exam.
[2019-11-19 05:27] LABS: UR PRO/CREAT RATIO RESULT 0.9 mg/mg (0.0-0.2); URINE CREATININE 131.8 mg/dL (15-278); URINE PROTEIN 120.7 mg/dL (<12)
[2019-11-19] MEDS: NORMAL SALINE 1000 ML 1,000 ML IV PRN (06:12)
[2019-11-19 06:26] LABS: INTERNATIONAL RATION (INR) 1.09; PROTHROMBIN TIME 14.3 SEC (11.4-15.4)
[2019-11-19 06:27] LABS: PARTIAL THROMBOPLASTIN TIME 37.6 SEC (23.5-35.8)
[2019-11-19] MEDS: HEPARIN SOD (PORCINE) 5,000 UNIT/ML 1 ML VIAL SUBCUT SCH ×2 (15:12→21:14)
--- NOTE | 2019-11-19 21:07 | PDOC H&P ---
History of Present Illness Admission Date/PCP: 11/19/19 01:16 MALINDA VILLANUEVA MD History of Present Illness: TERRANCE EDWARD is a 59 year old female, She came to the emergency room for evaluation of bilateral leg pain, numbness and tingling of the feet for the last 1 week, bilateral pedal edema She states that her feet as progressively worsening the last couple of weeks. She also stated that she has carpal tunnel syndrome, she saw orthopedic surgeon, it seemed that she was evaluated by a neurologist with nerve conduction studies/EMS.The blood work that was done in the emergency room was grossly abnormal the serum creatinine was 1.9, the serum calcium was 10.3 there was proteinuria on dipstick, Hemoglobin was 9.8, the constellation of anemia, hypercalcemia, azotemia hyperproteinemia raises the suspicion for monoclonal gammopathy/paraproteinemia, she will be evaluated for this condition.She told me she has no history of kidney disease that she knows of, the kidney ultrasound did not demonstrate any hydronephrosis to suggest post renal azotemia. Past Medical History Musculoskeltal Medical History: Denies: Arthritis Social History Lives with: Family Smoking Status: Never Smoker Family History Family History: Reviewed & Not Pertinent Parental Family History Reviewed: Yes Children Family History Reviewed: Yes Sibling(s) Family History Reviewed.: Yes Medication/Allergy Home Medications: RX: Ezetimibe 1 tab PO DAILY 04/14/17 Cetirizine HCl [Zyrtec] 10 mg PO DAILY 11/19/19 Allergies/Adverse Reactions: No Known Allergies Allergy (Verified 04/18/17 09:12) Review of Systems Constitutional: ABSENT: chills, fever(s), headache(s), weight gain, weight loss Eyes: ABSENT: visual disturbances Ears: ABSENT: hearing changes Cardiovascular: PRESENT: edema. ABSENT: chest pain, dyspnea on exertion, orthropnea, palpitations Respiratory: ABSENT: cough, hemoptysis Gastrointestinal: ABSENT: abdominal pain, constipation, diarrhea, hematemesis, hematochezia, nausea, vomiting Genitourinary: ABSENT: dysuria, hematuria Musculoskeletal: PRESENT: back pain, joint swelling Integumentary: ABSENT: rash, wounds Neurological: ABSENT: abnormal gait, abnormal speech, confusion, dizziness, focal weakness, syncope Psychiatric: ABSENT: anxiety, depression, homidical ideation, suicidal ideation Endocrine: ABSENT: cold intolerance, heat intolerance, menstrual abnormalities, polydipsia, polyuria Hematologic/Lymphatic: ABSENT: easy bleeding, easy bruising, lymphadenopathy Physical Exam Vital Signs: Temp Pulse Resp BP Pulse Ox 97.7 F 70 18 133/83 H 100 11/19/19 16:05 11/19/19 16:05 11/19/19 16:05 11/19/19 16:05 11/19/19 16:05 Intake & Output 11/18/19 11/19/19 11/20/19 06:59 06:59 06:59 Intake Total 460 870 Output Total 700 Balance 460 170 Weight 93.8 kg General appearance: PRESENT: no acute distress Head exam: PRESENT: atraumatic, normocephalic Eye exam: PRESENT: PERRLA Ear exam: PRESENT: normal external ear exam Mouth exam: PRESENT: moist Neck exam: PRESENT: full ROM Respiratory exam: PRESENT: clear to auscultation perla Cardiovascular exam: PRESENT: RRR, +S1, +S2 Vascular exam: PRESENT: normal capillary refill GI/Abdominal exam: PRESENT: normal bowel sounds, soft Rectal exam: PRESENT: deferred Extremities exam: PRESENT: pedal edema Neurological exam: PRESENT: alert, CN II-XII grossly intact Psychiatric exam: PRESENT: appropriate affect, normal mood Skin exam: PRESENT: dry, intact, warm Results Laboratory Results: 11/18/19 21:50 11/18/19 21:50 11/18/19 11/18/19 11/18/19 21:50 21:50 21:50 WBC 4.7 RBC 3.21 L Hgb 9.8 L Hct 28.7 L MCV 89 MCH 30.5 MCHC 34.1 RDW 12.5 Plt Count 179 Seg Neutrophils % 79.9 H Sodium 140.3 Potassium 5.7 H Chloride 109 H Carbon Dioxide 21 L Anion Gap 10 BUN 59 H Creatinine 1.90 H Est GFR ( Amer) 33 L Glucose 103 Uric Acid 9.1 H Calcium 10.3 H Magnesium 2.1 Total Bilirubin 0.5 AST 48 H Alkaline Phosphatase 81 Ammonia Total Protein 10.1 H Albumin 3.8 Amylase Lipase TSH Free T4 PTH Intact Urine Color Urine Appearance Urine pH Ur Specific [place] Urine Protein Urine Glucose (UA) Urine Ketones Urine Blood Urine Nitrite Ur Leukocyte Esterase Urine WBC (Auto) Urine RBC (Auto) 0911/19/19 11/19/19 23:10 01:30 01:30 WBC RBC Hgb Hct MCV MCH MCHC RDW Plt Count Seg Neutrophils % Sodium Potassium Chloride Carbon Dioxide Anion Gap BUN Creatinine Est GFR ( Amer) Glucose Uric Acid Calcium Magnesium Total Bilirubin AST Alkaline Phosphatase Ammonia Total Protein Albumin Amylase 198 H Lipase 185.2 TSH 1.47 Free T4 1.61 PTH Intact Urine Color YELLOW Urine Appearance CLEAR Urine pH 5.0 Ur Specific [place] 1.017 Urine Protein 100 H Urine Glucose (UA) NEGATIVE Urine Ketones TRACE H Urine Blood MODERATE H Urine Nitrite NEGATIVE Ur Leukocyte Esterase NEGATIVE Urine WBC (Auto) 2 Urine RBC (Auto) 6 11/19/19 11/19/19 06:02 06:02 WBC RBC Hgb Hct MCV MCH MCHC RDW Plt Count Seg Neutrophils % Sodium Potassium Chloride Carbon Dioxide Anion Gap BUN Creatinine Est GFR ( Amer) Glucose Uric Acid Calcium Magnesium Total Bilirubin AST Alkaline Phosphatase Ammonia 15.6 Total Protein Albumin Amylase Lipase TSH Free T4 PTH Intact 25.1 Urine Color Urine Appearance Urine pH Ur Specific [place] Urine Protein Urine Glucose (UA) Urine Ketones Urine Blood Urine Nitrite Ur Leukocyte Esterase Urine WBC (Auto) Urine RBC (Auto) 11/18/19 11/18/19 21:50 21:50 Creatine Kinase 204 H Troponin I 0.021 Impressions: Lumbar Spine X-Ray 11/18/19 20:40 IMPRESSION: No acute lumbar findings are seen. Renal Ultrasound 11/19/19 00:00 IMPRESSION: Essentially unremarkable exam. Chest X-Ray 11/19/19 00:32 IMPRESSION: No traumatic abnormality. copyright 2010 [employer]- All Rights Reserved Pelvis X-Ray 11/19/19 00:33 IMPRESSION: No fracture or dislocation. copyright 2011 [employer]- All Rights Reserved Assessment & Plan - Diagnosis (1) Acute kidney injury Is this a current diagnosis for this admission?: Yes Plan: The constellation of azotemia, hypercalcemia, anemia, hypoproteinemia raises the suspicion for multiple myeloma, kidney ultrasound was normal, patient be treated with IV fluid To rule out prerenal azotemia. (2) Hypercalcemia Is this a current diagnosis for this admission?: Yes Plan: There is hypercalcemia, check PTH to determine if the hypercalcemia is PTH mediated or otherwise (3) Hyperproteinemia Is this a current diagnosis for this admission?: Yes Plan: Needs to rule out paraproteinemia, serum protein and urine protein electrophoresis is ordered (4) Anemia Qualifiers: Anemia type: unspecified type Qualified Code(s): D64.9 - Anemia, unspecified Is this a current diagnosis for this admission?: Yes Plan: Anemia work-up ordered including iron studies etc. (5) Hyperuricemia Is this a current diagnosis for this admission?: Yes Plan: She has painful joints no suggest acute gouty arthropathy (6) Hyperkalemia Is this a current diagnosis for this admission?: Yes - Time Time Spent: Greater than 70 Minutes Medications reviewed and adjusted accordingly: Yes Anticipated Discharge Disposition: Home, Self Care Anticipated Discharge Timeframe: within 72 hours - Inpatient Certification Based on my medical assessment, after consideration of the patient's com orbidities, presenting symptoms, or acuity I expect that the services needed warrant INPATIENT care.: Yes I certify that my determination is in accordance with my understanding of Medicare's requirements for reasonable and necessary INPATIENT services [42 CFR 412.3e].: Yes
[2019-11-19 22:50] LABS: ANION GAP 8 (5-19); BLOOD UREA NITROGEN 62 mg/dL (7-20); CALCIUM 9.5 mg/dL (8.4-10.2); CARBON DIOXIDE 19 mmol/L (22-30); CHLORIDE 109 mmol/L (98-107); GLUCOSE 160 mg/dL (75-110); POTASSIUM 4.7 mmol/L (3.6-5.0)
[2019-11-20] MEDS: NORMAL SALINE 1000 ML 1,000 ML IV PRN (00:47)
[2019-11-20 05:00] LABS: ABSOLUTE LYMPHOCYTES (AUTO) 1.1 10^3/uL (0.5-4.7); ABSOLUTE MONOCYTES (AUTO) 0.3 10^3/uL (0.1-1.4); ABSOLUTE RETICS # 0.036 10^6/uL (0.028-0.122); BASOPHILS % (AUTO) 0.4 % (0-2); HEMATOCRIT 27.6 % (36.0-47.0); HEMOGLOBIN 9.6 g/dL (12.0-15.5); LYMPHOCYTES % (AUTO) 24.3 % (13-45); MEAN CORPUSCULAR HEMOGLOBIN 30.7 pg (27.0-33.4); MEAN CORPUSCULAR HGB CONC 34.6 g/dL (32.0-36.0); MEAN CORPUSCULAR VOLUME 89 fl (80-97); MONOCYTES % (AUTO) 6.8 % (3-13); PLATELET COUNT 171 10^3/uL (150-450); RED BLOOD COUNT 3.11 10^6/uL (3.72-5.28); RED CELL DISTRIBUTION WIDTH 12.2 % (11.5-14.0); RETICULOCYTE COUNT (AUTO) 1.14 % (0.66-2.85); SEGMENTED NEUTROPHILS % (AUTO) 68.5 % (42-78); TOTAL CELLS COUNTED % (AUTO) 100 %; WHITE BLOOD COUNT 4.4 10^3/uL (4.0-10.5)
[2019-11-20 05:13] LABS: ALBUMIN 3.2 g/dL (3.5-5.0); ALKALINE PHOSPHATASE 57 U/L (38-126); ANION GAP 8 (5-19); ASPARTATE AMINO TRANSFERASE 41 U/L (14-36); BILIRUBIN,DIRECT 0.2 mg/dL (0.0-0.4); BILIRUBIN,TOTAL 0.3 mg/dL (0.2-1.3); BLOOD UREA NITROGEN 58 mg/dL (7-20); CALCIUM 9.7 mg/dL (8.4-10.2); CARBON DIOXIDE 20 mmol/L (22-30); CHLORIDE 114 mmol/L (98-107); GLUCOSE 117 mg/dL (75-110); IRON(TIBC) 102.3 ug/dL (37-170); POTASSIUM 4.6 mmol/L (3.6-5.0); TOTAL PROTEIN 8.7 g/dL (6.3-8.2)
[2019-11-20] MEDS: HEPARIN SOD (PORCINE) 5,000 UNIT/ML 1 ML VIAL SUBCUT SCH ×3 (05:52→23:07)
[2019-11-20 07:12] LABS: FOLATE 3.65 ng/mL (>2.76)
[2019-11-20 10:32] LABS: URINE CREATININE 60.9 mg/dL (15-278)
[2019-11-20] MEDS: HYDROCODONE/ACETAMINOPHEN 5-325 MG TABLET PO PRN (13:31)
--- NOTE | 2019-11-20 14:50 | RADIOLOGY REPORT (SQ) ---
EXAM DESCRIPTION: BONE SURVEY COMPLETE IMAGES COMPLETED DATE/TIME: 11/20/2019 2:31 pm REASON FOR STUDY: Multiple Myeloma? COMPARISON: None. TECHNIQUE: Images of the axial and proximal appendicular skeleton are obtained, along with lateral s kull and frontal chest films. LIMITATIONS: Motion. FINDINGS: AP CHEST: No bony findings. Lungs are clear. LATERAL SKULL: No worrisome bone lesions. AP BOTH HUMERI: No worrisome bone lesions. TWO-VIEW LUMBAR SPINE: No worrisome bone lesions. TWO-VIEW THORACIC SPINE: No worrisome bone lesions. AP PELVIS: No worrisome bone lesions. AP BOTH FEMURS: No worrisome bone lesions. OTHER: No other significant finding. IMPRESSION: Negative bone survey. Reading location - IP/workstation name: [email or web address]
--- NOTE | 2019-11-20 19:10 | PDOC PROGRESS REPORT ---
Subjective Progress Note for:: 11/20/19 Subjective:: Patient seen by the bedside, the iron indices are normal she had skeletal survey today it was normal, there was slight improvement in the hypercalcemia since hydration with fluid, she has a lot of pain in her joints this raises suspicion for gout Reason For Visit: ANEMIA,ACUTE KIDNEY INJURY,HYPERCALCEMIA ? MULTIPL Physical Exam Vital Signs: Temp Pulse Resp BP Pulse Ox 98.3 F 79 18 121/68 99 11/20/19 11:37 11/20/19 11:37 11/20/19 11:37 11/20/19 11:37 11/20/19 11:37 Intake & Output 11/19/19 11/20/19 11/21/19 06:59 06:59 06:59 Intake Total 460 2510 360 Output Total 1420 400 Balance 460 1090 -40 Weight 93.8 kg 92.4 kg General appearance: PRESENT: no acute distress Eye exam: PRESENT: PERRLA Respiratory exam: PRESENT: clear to auscultation perla Cardiovascular exam: PRESENT: +S1, +S2 GI/Abdominal exam: PRESENT: soft Neurological exam: PRESENT: alert Results Laboratory Results: 11/20/19 04:20 11/20/19 04:20 11/19/19 11/19/19 11/20/19 08:18 22:10 04:20 WBC 4.4 RBC 3.11 L Hgb 9.6 L Hct 27.6 L MCV 89 MCH 30.7 MCHC 34.6 RDW 12.2 Plt Count 171 Seg Neutrophils % 68.5 Retic Count (auto) 1.14 Sodium 136.2 L Potassium 4.7 Chloride 109 H Carbon Dioxide 19 L Anion Gap 8 BUN 62 H Creatinine 1.50 H Est GFR ( Amer) 43 L Glucose 160 H Calcium 9.5 Iron TIBC % Saturation Ferritin Total Bilirubin AST Alkaline Phosphatase Total Protein Albumin Vitamin B12 Folate Urine Color Urine Appearance Urine pH Ur Specific [place] Urine Protein Urine Glucose (UA) Urine Ketones Urine Blood Urine RBC (Auto) Ur 24 Hour Volume 1540 11/20/19 11/20/19 04:20 08:30 WBC RBC Hgb Hct MCV MCH MCHC RDW Plt Count Seg Neutrophils % Retic Count (auto) Sodium 141.7 Potassium 4.6 Chloride 114 H Carbon Dioxide 20 L Anion Gap 8 BUN 58 H Creatinine 1.36 H Est GFR ( Amer) 48 L Glucose 117 H Calcium 9.7 Iron 102.3 TIBC 235 L % Saturation 44 Ferritin 252.00 Total Bilirubin 0.3 AST 41 H Alkaline Phosphatase 57 Total Protein 8.7 H Albumin 3.2 L Vitamin B12 433.0 Folate 3.65 Urine Color Cancelled Urine Appearance Cancelled Urine pH Cancelled Ur Specific [place] Cancelled Urine Protein Cancelled Urine Glucose (UA) Cancelled Urine Ketones Cancelled Urine Blood Cancelled Urine RBC (Auto) Cancelled Ur 24 Hour Volume 11/18/19 11/18/19 21:50 21:50 Creatine Kinase 204 H Troponin I 0.021 Impressions: Lumbar Spine X-Ray 11/18/19 20:40 IMPRESSION: No acute lumbar findings are seen. Renal Ultrasound 11/19/19 00:00 IMPRESSION: Essentially unremarkable exam. Chest X-Ray 11/19/19 00:32 IMPRESSION: No traumatic abnormality. copyright 2010 [employer]- All Rights Reserved Pelvis X-Ray 11/19/19 00:33 IMPRESSION: No fracture or dislocation. copyright 2010 [employer]- All Rights Reserved Skeletal Survey 11/20/19 00:00 IMPRESSION: Negative bone survey. Assessment & Plan - Diagnosis (1) Acute kidney injury Is this a current diagnosis for this admission?: Yes Plan: Improving (2) Hypercalcemia Is this a current diagnosis for this admission?: Yes Plan: Improving (3) Hyperproteinemia Is this a current diagnosis for this admission?: Yes (4) Anemia Qualifiers: Anemia type: unspecified type Qualified Code(s): D64.9 - Anemia, unspe cified Is this a current diagnosis for this admission?: Yes (5) Hyperuricemia Is this a current diagnosis for this admission?: Yes (6) Hyperkalemia Is this a current diagnosis for this admission?: Yes (7) Acute gouty arthropathy Is this a current diagnosis for this admission?: Yes Plan: Start Solu-Medrol 60 mg IV every 8 - Time Time Spent with patient: 25-34 minutes Level of Care: IMCU Medications reviewed and adjusted accordingly: Yes Anticipated discharge: Home - Inpatient Certification Based on my medical assessment, after consideration of the patient's comorbidities, presenting symptoms, or acuity I expect that the services needed warrant INPATIENT care.: Yes I certify that my determination is in accordance with my understanding of [facility]'s requirements for reasonable and necessary INPATIENT services [42 CFR 412.3e].: Yes
[2019-11-20] MEDS: METHYLPREDNISOLONE INJ 40 MG/1 ML SDV IV SCH ×2 (20:55→23:06)
[2019-11-21] MEDS: HYDROCODONE/ACETAMINOPHEN 5-325 MG TABLET PO PRN (04:25)
[2019-11-21] MEDS: METHYLPREDNISOLONE INJ 40 MG/1 ML SDV IV SCH ×3 (05:48→21:50)
[2019-11-21] MEDS: HEPARIN SOD (PORCINE) 5,000 UNIT/ML 1 ML VIAL SUBCUT SCH ×3 (05:48→21:50)
[2019-11-21 06:01] LABS: ABSOLUTE LYMPHOCYTES (AUTO) 0.6 10^3/uL (0.5-4.7); ABSOLUTE MONOCYTES (AUTO) 0.1 10^3/uL (0.1-1.4); ABSOLUTE NEUT (AUTO) 2.4 10^3/uL (1.7-8.2); BASOPHILS % (AUTO) 0.2 % (0-2); HEMATOCRIT 27.8 % (36.0-47.0); HEMOGLOBIN 9.7 g/dL (12.0-15.5); LYMPHOCYTES % (AUTO) 19.4 % (13-45); MEAN CORPUSCULAR HGB CONC 34.8 g/dL (32.0-36.0); MEAN CORPUSCULAR VOLUME 89 fl (80-97); MONOCYTES % (AUTO) 2.9 % (3-13); PLATELET COUNT 174 10^3/uL (150-450); RED BLOOD COUNT 3.11 10^6/uL (3.72-5.28); RED CELL DISTRIBUTION WIDTH 12.4 % (11.5-14.0); SEGMENTED NEUTROPHILS % (AUTO) 77.5 % (42-78); TOTAL CELLS COUNTED % (AUTO) 100 %; WHITE BLOOD COUNT 3.2 10^3/uL (4.0-10.5)
[2019-11-21 08:47] LABS: ALBUMIN 3.2 g/dL (3.5-5.0); ALKALINE PHOSPHATASE 59 U/L (38-126); ANION GAP 8 (5-19); ASPARTATE AMINO TRANSFERASE 36 U/L (14-36); BILIRUBIN,DIRECT 0.2 mg/dL (0.0-0.4); BILIRUBIN,TOTAL 0.2 mg/dL (0.2-1.3); BLOOD UREA NITROGEN 44 mg/dL (7-20); CALCIUM 9.5 mg/dL (8.4-10.2); CARBON DIOXIDE 19 mmol/L (22-30); CHLORIDE 112 mmol/L (98-107); GLUCOSE 154 mg/dL (75-110); POTASSIUM 5.2 mmol/L (3.6-5.0); TOTAL PROTEIN 8.9 g/dL (6.3-8.2)
[2019-11-21 14:37] LABS: ALBUMIN UR 23.5 % (.); ALPHA-1-GLOBULIN URINE 1.6 % (.); GAMMA GLOBULIN URINE 41.5 % (.); M-SPIKE % UR Not Observed % (Not Observ); PROTEIN TOTAL URINE 132.1 mg/dL (Not Estab.)
[2019-11-21 16:37] LABS: ANTINUCLEAR ANTIBODIES Positive (Negative); SJOGREN'S ANTI-SS-B AB >8.0 AI (0.0-0.9); SJOGREN'S SS-A ANTIBODY >8.0 AI (0.0-0.9); SMITH AB ANA 0.8 AI (0.0-0.9)
[2019-11-21 17:36] LABS: A/G RATIO. 0.5 (0.7-1.7); ALBUMIN 3 3.2 g/dL (2.9-4.4); ALPHA-1-GLOBULIN 0.3 g/dL (0.0-0.4); BETA GLOBULIN 0.9 g/dL (0.7-1.3); GAMMA GLOBULINS 4.8 g/dL (0.4-1.8); IMMUNOGLOBULIN A 371 mg/dL (87-352); IMMUNOGLOBULIN M 100 mg/dL (26-217); MONOCLONAL-SPIKE Not Observed g/dL (Not Observ); PROTEIN TOTAL SERUM 10.2 g/dL (6.0-8.5)
[2019-11-21 17:46] LABS: IMMUNOGLOBULIN G 5280 mg/dL (586-1602)
[2019-11-21 17:46] LABS: DNA DOUBLE STRAND ANTIBODY ANA >300 IU/mL (0-9)
--- NOTE | 2019-11-21 18:24 | PDOC PROGRESS REPORT ---
Subjective Progress Note for:: 11/21/19 Subjective:: Patient seen by the bedside, the autoantibody test consistent with systemic lupus erythematosus, patient is responding very well to to IV Solu-Medrol, start Plaquenil Reason For Visit: ANEMIA,ACUTE KIDNEY INJURY,HYPERCALCEMIA ? MULTIPL Physical Exam Vital Signs: Temp Pulse Resp BP Pulse Ox 97.6 F 80 17 178/92 H 96 11/21/19 15:41 11/21/19 15:41 11/21/19 15:41 11/21/19 15:41 11/21/19 15:41 Intake & Output 11/20/19 11/21/19 11/22/19 06:59 06:59 06:59 Intake Total 2510 600 118 Output Total 1420 400 250 Balance 1090 200 -132 Weight 92.4 kg 92.5 kg General appearance: PRESENT: no acute distress Eye exam: PRESENT: PERRLA Respiratory exam: PRESENT: clear to auscultation perla Cardiovascular exam: PRESENT: +S1, +S2 GI/Abdominal exam: PRESENT: soft Neurological exam: PRESENT: alert Results Laboratory Results: 11/21/19 05:10 11/21/19 05:10 11/19/19 11/21/19 11/21/19 01:30 05:10 05:10 WBC 3.2 L RBC 3.11 L Hgb 9.7 L Hct 27.8 L MCV 89 MCH 31.0 MCHC 34.8 RDW 12.4 Plt Count 174 Seg Neutrophils % 77.5 Sodium 138.8 Potassium 5.2 H Chloride 112 H Carbon Dioxide 19 L Anion Gap 8 BUN 44 H Creatinine 1.25 Est GFR ( Amer) 53 L Glucose 154 H Calcium 9.5 Total Bilirubin 0.2 AST 36 Alkaline Phosphatase 59 Total Protein 10.2 H 8.9 H Albumin 3.2 L 11/18/19 11/18/19 21:50 21:50 Creatine Kinase 204 H Troponin I 0.021 Impressions: Lumbar Spine X-Ray 11/18/19 20:40 IMPRESSION: No acute lumbar findings are seen. Renal Ultrasound 11/19/19 00:00 IMPRESSION: Essentially unremarkable exam. Chest X-Ray 11/19/19 00:32 IMPRESSION: No traumatic abnormality. copyright 2011 [employer]- All Rights Reserved Pelvis X-Ray 11/19/19 00:33 IMPRESSION: No fracture or dislocation. copyright 2010 [employer]- All Rights Reserved Skeletal Survey 11/20/19 00:00 IMPRESSION: Negative bone survey. Assessment & Plan - Diagnosis (1) Acute kidney injury Is this a current diagnosis for this admission?: Yes Plan: Improving (2) Hypercalcemia Is this a current diagnosis for this admission?: Yes (3) Hyperproteinemia Is this a current diagnosis for this admission?: Yes (4) Anemia Qualifiers: Anemia type: unspecified type Qualified Code(s): D64.9 - Anemia, unspecified Is this a current diagnosis for this admission?: Yes (5) Hyperuricemia Is this a current diagnosis for this admission?: Yes (6) Hyperkalemia Is this a current diagnosis for this admission?: Yes (7) Acute gouty arthropathy Is this a current diagnosis for this admission?: Yes (8) Systemic lupus erythematosus Qualifiers: Systemic lupus erythematosus type: other Systemic lupus erythematosus organ involvement: tubulo-interstitial nephropathy Qualified Code(s): 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 Is this a current diagnosis for this admission?: Yes Plan: Continue Solu-Medrol, start Plaquenil - Time Time Spent with patient: 25-34 minutes Level of Care: IMCU Medications reviewed and adjusted accordingly: Yes Anticipated discharge: Home Anticipated DC Timeframe: within 72 hours - Inpatient Certification Based on my medical assessment, after consideration of the patient's comorbidities, presenting symptoms, or acuity I expect that the services needed warrant INPATIENT care.: Yes I certify that my determination is in accordance with my understanding of Medicare's requirements for reasonable and necessary INPATIENT services [42 CFR 412.3e].: Yes
[2019-11-21] MEDS: HYDROXYCHLOROQUINE SULFATE 200 MG TABLET PO SCH (20:31)
[2019-11-22] MEDS: METHYLPREDNISOLONE INJ 40 MG/1 ML SDV IV SCH ×3 (05:18→22:03)
[2019-11-22] MEDS: HEPARIN SOD (PORCINE) 5,000 UNIT/ML 1 ML VIAL SUBCUT SCH ×3 (05:18→22:03)
[2019-11-22 05:20] LABS: ABSOLUTE MONOCYTES (AUTO) 0.3 10^3/uL (0.1-1.4); ABSOLUTE NEUT (AUTO) 4.3 10^3/uL (1.7-8.2); BASOPHILS % (AUTO) 0.2 % (0-2); HEMATOCRIT 27.8 % (36.0-47.0); HEMOGLOBIN 9.8 g/dL (12.0-15.5); LYMPHOCYTES % (AUTO) 17.8 % (13-45); MEAN CORPUSCULAR HGB CONC 35.2 g/dL (32.0-36.0); MEAN CORPUSCULAR VOLUME 88 fl (80-97); MONOCYTES % (AUTO) 5.6 % (3-13); PLATELET COUNT 187 10^3/uL (150-450); RED BLOOD COUNT 3.15 10^6/uL (3.72-5.28); RED CELL DISTRIBUTION WIDTH 12.1 % (11.5-14.0); SEGMENTED NEUTROPHILS % (AUTO) 76.4 % (42-78); TOTAL CELLS COUNTED % (AUTO) 100 %; WHITE BLOOD COUNT 5.6 10^3/uL (4.0-10.5)
[2019-11-22] MEDS: HYDROXYCHLOROQUINE SULFATE 200 MG TABLET PO SCH ×2 (10:58→17:40)
[2019-11-22] MEDS ORDERED: INFLUENZA QUAD (6MOS+) 2020-21 VAC 0.5 ML SYR IM ONE (15:00)
[2019-11-22 15:37] LABS: ALBUMIN URINE 24HR 12.8 % (.); ALPHA-1-GLOBULIN URINE 24HR 2.4 % (.); ALPHA-2-GLOBULIN URINE 24HR 12.5 % (.); GAMMA GLOBULIN URINE 24HR 43.5 % (.); PROTEIN TOTAL UR 24HR 614 mg/24 hr (30-150); PROTEIN TOTAL URINE 39.9 mg/dL (Not Estab.)
--- NOTE | 2019-11-22 22:24 | PDOC PROGRESS REPORT ---
Subjective Progress Note for:: 11/22/19 Subjective:: Patient family bedside, she has lupus the result was explained to her, she has high titer of [id number] DNA antibody,MANJINDER , She was started on Plaquenil yesterday Reason For Visit: ANEMIA,ACUTE KIDNEY INJURY,HYPERCALCEMIA ? MULTIPL Physical Exam Vital Signs: Temp Pulse Resp BP Pulse Ox 97.8 F 65 22 H 178/85 H 100 11/22/19 20:00 11/22/19 20:00 11/22/19 20:00 11/22/19 20:00 11/22/19 20:00 Intake & Output 11/21/19 11/22/19 11/23/19 06:59 06:59 06:59 Intake Total 600 1778 716 Output Total 400 250 Balance 200 1528 716 Weight 92.5 kg 92.5 kg General appearance: PRESENT: no acute distress Eye exam: PRESENT: PERRLA Respiratory exam: PRESENT: clear to auscultation perla Cardiovascular exam: PRESENT: +S1, +S2 GI/Abdominal exam: PRESENT: soft Neurological exam: PRESENT: alert, CN II-XII grossly intact Results Laboratory Results: 11/22/19 04:32 11/21/19 05:10 11/22/19 04:32 WBC 5.6 RBC 3.15 L Hgb 9.8 L Hct 27.8 L MCV 88 MCH 31.0 MCHC 35.2 RDW 12.1 Plt Count 187 Seg Neutrophils % 76.4 11/18/19 11/18/19 21:50 21:50 Creatine Kinase 204 H Troponin I 0.021 Impressions: Lumbar Spine X-Ray 11/18/19 20:40 IMPRESSION: No acute lumbar findings are seen. Renal Ultrasound 11/19/19 00:00 IMPRESSION: Essentially unremarkable exam. Chest X-Ray 11/19/19 00:32 IMPRESSION: No traumatic abnormality. copyright 2010 [employer]- All Rights Reserved Pelvis X-Ray 11/19/19 00:33 IMPRESSION: No fracture or dislocation. copyright 2010 [employer]- All Rights Reserved Skeletal Survey 11/20/19 00:00 IMPRESSION: Negative bone survey. Assessment & Plan - Diagnosis (1) Acute kidney injury Is this a current diagnosis for this admission?: Yes (2) Hypercalcemia Is this a current diagnosis for this admission?: Yes (3) Hyperproteinemia Is this a current diagnosis for this admission?: Yes (4) Anemia Qualifiers: Anemia type: unspecified type Qualified Code(s): D64.9 - Anemia, unspecified Is this a current diagnosis for this admission?: Yes (5) Hyperuricemia Is this a current diagnosis for this admission?: Yes (6) Hyperkalemia Is this a current diagnosis for this admission?: Yes (7) Systemic lupus erythematosus Qualifiers: Systemic lupus erythematosus type: other Systemic lupus erythematosus organ involvement: tubulo-interstitial nephropathy Qualified Code(s): 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
[2019-11-23] MEDS: HEPARIN SOD (PORCINE) 5,000 UNIT/ML 1 ML VIAL SUBCUT SCH ×2 (05:35→14:59)
[2019-11-23] MEDS: METHYLPREDNISOLONE INJ 40 MG/1 ML SDV IV SCH ×2 (05:35→15:00)
[2019-11-23] MEDS: HYDROXYCHLOROQUINE SULFATE 200 MG TABLET PO SCH (10:11)
--- NOTE | 2019-11-23 12:11 | PDOC DISCHARGE SUMMARY ---
Impression - Admit/DC Date/PCP Admission Date/Primary Care Provider: 11/19/19 01:16 MALINDA VILLANUEVA MD Discharge Date: 11/23/19 - Discharge Diagnosis (1) Acute kidney injury Is this a current diagnosis for this admission?: Yes (2) Hypercalcemia Is this a current diagnosis for this admission?: Yes (3) Hyperproteinemia Is this a current diagnosis for this admission?: Yes (4) Anemia Is this a current diagnosis for this admission?: Yes (5) Hyperuricemia Is this a current diagnosis for this admission?: Yes (6) Hyperkalemia Is this a current diagnosis for this admission?: Yes (7) Systemic lupus erythematosus Is this a current diagnosis for this admission?: Yes - Additional Information Referrals: MALINDA VILLANUEVA MD [Primary Care Provider] - 11/26/19 4:00 pm Prescriptions: Hydroxychloroquine Sulfate [Plaquenil 200 mg Tablet] 200 mg PO BID #60 tablet Prednisone 5 mg PO DAILY #30 tablet Home Medications: Ezetimibe 1 tab PO DAILY 04/14/17 Cetirizine HCl [Zyrtec] 10 mg PO DAILY 11/19/19 Hydroxychloroquine Sulfate [Plaquenil 200 mg Tablet] 200 mg PO BID #60 tablet 11/23/19 Prednisone 5 mg PO DAILY #30 tablet 11/23/19 History of Present Illiness History of Present Illness: TERRANCE EDWARD is a 59 year old female, She came to the emergency room for evaluation of bilateral leg pain, numbness and tingling of the feet for the last 1 week, bilateral pedal edema She states that her feet as progressively worsening the last couple of weeks. She also stated that she has carpal tunnel syndrome, she saw orthopedic surgeon, it seemed that she was evaluated by a neurologist with nerve conduction studies/EMS.The blood work that was done in the emergency room was grossly abnormal the serum creatinine was 1.9, the serum calcium was 10.3 there was proteinuria on dipstick, Hemoglobin was 9.8, the constellation of anemia, hypercalcemia, azotemia hyperproteinemia raises the suspicion for monoclonal gammopathy/paraproteinemia, she will be evaluated for this condition.She told me she has no history of kidney disease that she knows of, the kidney ultrasound did not demonstrate any hydronephrosis to suggest post renal azotemia. Hospital Course Hospital Course: Patient was admitted for the evaluation of bilateral leg pain, swelling, numbness and tingling of the feet, bilateral pedal edema. The blood work that was done in the emergency room was grossly abnormal, serum creatinine was 1.9, serum calcium 10.3, there was proteinuria on dipstick, hemoglobin 9.8, the constellation of anemia, hypercalcemia, azotemia, hypoproteinemia raises suspicion for monoclonal gammopathy. She was extensively evaluated the acute kidney injury was treated with normal saline with normlaization of kidney function. She has grossly elevated autoantibody tests including double-stranded DNA antibody with a titer of more than 300, SSA/Ro antibody titer more than 80, SSB/L a antibody titer more than 80 ,anti-Hillman antibody 0.8 the MANJINEDR titer was very high and positive the autoantibody test result was consistent with systemic lupus Erythematosus. She also have proteinuria, the serum M spike was negative, the serum PTH was normal, the hypercalcemia was corrected with saline. Patient was treated with Solu-Medrol 60 mg IV every 8 hours and she was started on Plaquenil for lupus Physical Exam Vital Signs: Temp Pulse Resp BP Pulse Ox 98.4 F 79 23 H 154/71 H 99 11/22/19 23:38 11/22/19 23:38 11/22/19 23:38 11/22/19 23:38 11/22/19 23:38 Intake & Output 11/22/19 11/23/19 11/24/19 06:59 06:59 06:59 Intake Total 1778 1316 Output Total 250 Balance 1528 1316 Weight 92.5 kg 91.8 kg General appearance: PRESENT: no acute distress Eye exam: PRESENT: PERRLA Respiratory exam: PRESENT: clear to auscultation perla Cardiovascular exam: PRESENT: +S1, +S2 GI/Abdominal exam: PRESENT: soft Neurological exam: PRESENT: alert, CN II-XII grossly intact Results Laboratory Results: WBC 5.6 10^3/uL (4.0-10.5) 11/22/19 04:32 RBC 3.15 10^6/uL (3.72-5.28) L 11/22/19 04:32 Hgb 9.8 g/dL (12.0-15.5) L 11/22/19 04:32 Hct 27.8 % (36.0-47.0) L 11/22/19 04:32 MCV 88 fl (80-97) 11/22/19 04:32 MCH 31.0 pg (27.0-33.4) 11/22/19 04:32 MCHC 35.2 g/dL (32.0-36.0) 11/22/19 04:32 RDW 12.1 % (11.5-14.0) 11/22/19 04:32 Plt Count 187 10^3/uL (150-450) 11/22/19 04:32 Lymph % (Auto) 17.8 % (13-45) 11/22/19 04:32 Beckham % (Auto) 5.6 % (3-13) 11/22/19 04:32 Eos % (Auto) 0.0 % (0-6) 11/22/19 04:32 Baso % (Auto) 0.2 % (0-2) 11/22/19 04:32 Reticulocyte # 0.036 10^6/uL (0.028-0.122) 11/20/19 04:20 Absolute Neuts (auto) 4.3 10^3/uL (1.7-8.2) 11/22/19 04:32 Absolute Lymphs (auto) 1.0 10^3/uL (0.5-4.7) 11/22/19 04:32 Absolute Monos (auto) 0.3 10^3/uL (0.1-1.4) 11/22/19 04:32 Absolute Eos (auto) 0.0 10^3/uL (0.0-0.6) 11/22/19 04:32 Absolute Basos (auto) 0.0 10^3/uL (0.0-0.2) 11/22/19 04:32 Seg Neutrophils % 76.4 % (42-78) 11/22/19 04:32 Retic Count (auto) 1.14 % (0.66-2.85) 11/20/19 04:20 PT 14.3 SEC (11.4-15.4) 11/19/19 06:02 INR 1.09 11/19/19 06:02 APTT 37.6 SEC (23.5-35.8) H 11/19/19 06:02 Sodium 138.8 mmol/L (137-145) 11/21/19 05:10 Potassium 5.2 mmol/L (3.6-5.0) H 11/21/19 05:10 Chloride 112 mmol/L (98-107) H 11/21/19 05:10 Carbon Dioxide 19 mmol/L (22-30) L 11/21/19 05:10 Anion Gap 8 (5-19) 11/21/19 05:10 BUN 44 mg/dL (7-20) H 11/21/19 05:10 Creatinine 1.25 mg/dL (0.52-1.25) 11/21/19 05:10 Est GFR ( Amer) 53 (>60) L 11/21/19 05:10 Est GFR (MDRD) Non-Af 44 (>60) L 11/21/19 05:10 Glucose 154 mg/dL (75-110) H 11/21/19 05:10 Hemoglobin A1c % 5.9 % (4.7-6.0) 11/20/19 04:20 Uric Acid 9.1 mg/dL (2.5-7.5) H 11/18/19 21:50 Calcium 9.5 mg/dL (8.4-10.2) 11/21/19 05:10 Magnesium 2.1 mg/dL (1.6-2.3) 11/18/19 21:50 Iron 102.3 ug/dL (37-170) 11/20/19 04:20 TIBC 235 ug/dL (250-450) L 11/20/19 04:20 % Saturation 44 % 11/20/19 04:20 Ferritin 252.00 ng/mL (11.1-264.0) 11/20/19 04:20 Total Bilirubin 0.2 mg/dL (0.2-1.3) 11/21/19 05:10 Direct Bilirubin 0.2 mg/dL (0.0-0.4) 11/21/19 05:10 Neonat Total Bilirubin Not Reportable 11/21/19 05:10 Neonat Direct Bilirubin Not Reportable 11/21/19 05:10 Neonat Indirect Bili Not Reportable 11/21/19 05:10 AST 36 U/L (14-36) 11/21/19 05:10 ALT 21 U/L (<35) 11/21/19 05:10 Alkaline Phosphatase 59 U/L (38-126) 11/21/19 05:10 Ammonia 15.6 umol/L (9-33) 11/19/19 06:02 Creatine Kinase 204 U/L (30-135) H 11/18/19 21:50 Troponin I 0.021 ng/mL 11/18/19 21:50 Total Protein 8.9 g/dL (6.3-8.2) H 11/21/19 05:10 Albumin 3.2 g/dL (3.5-5.0) L 11/21/19 05:10 Globulin 7.0 g/dL (2.2-3.9) H 11/19/19 01:30 Alb/Glob Ratio Alt Meth 0.5 (0.7-1.7) L 11/19/19 01:30 Dicxe-4-Hvyilrcjj 0.3 g/dL (0.0-0.4) 11/19/19 01:30 Uyczp-7-Hugoagbpv 1.0 g/dL (0.4-1.0) 11/19/19 01:30 Beta Globulins 0.9 g/dL (0.7-1.3) 11/19/19 01:30 Gamma Globulins 4.8 g/dL (0.4-1.8) H 11/19/19 01:30 M-Klever Not Observed g/dL (Not Observ) 11/19/19 01:30 Amylase 198 U/L (30-110) H 11/19/19 01:30 Lipase 185.2 U/L (23-300) 11/19/19 01:30 Vitamin B12 433.0 pg/mL (239-931) 11/20/19 04:20 Folate 3.65 ng/mL (>2.76) 11/20/19 04:20 TSH 1.47 uIU/mL (0.47-4.68) 11/19/19 01:30 Free T4 1.61 ng/dL (0.78-2.19) 11/19/19 01:30 PTH Intact 25.1 pg/mL (10.0-65.0) 11/19/19 06:02 Immunoglobulin A 371 mg/dL (87-352) H 11/19/19 01:30 Immunoglobulin G 5280 mg/dL (586-1602) H 11/19/19 01:30 Immunoglobulin M 100 mg/dL (26-217) 11/19/19 01:30 Serum Immunofixation Comment (.) 11/19/19 01:30 Immunofixation Note Comment (.) 11/19/19 01:30 Urine Color Cancelled 11/20/19 08:30 Urine Appearance Cancelled 11/20/19 08:30 Urine pH Cancelled 11/20/19 08:30 Ur Specific [place] Cancelled 11/20/19 08:30 Urine Protein Cancelled 11/20/19 08:30 Urine Glucose (UA) Cancelled 11/20/19 08:30 Urine Ketones Cancelled 11/20/19 08:30 Urine Blood Cancelled 11/20/19 08:30 Urine Nitrite NEGATIVE (NEGATIVE) 11/18/19 23:10 Urine Nitrite (Reflex) Cancelled 11/20/19 08:30 Urine Bilirubin Cancelled 11/20/19 08:30 Urine Urobilinogen Cancelled 11/20/19 08:30 Ur Leukocyte Esterase NEGATIVE (NEGATIVE) 11/18/19 23:10 Leukocyte Esterase Rfl Cancelled 11/20/19 08:30 Urine WBC (Auto) 2 /HPF 11/18/19 23:10 Urine RBC (Auto) Cancelled 11/20/19 08:30 U Hyaline Cast (Auto) Cancelled 11/20/19 08:30 Urine Bacteria (Auto) Cancelled 11/20/19 08:30 Urine Red Cell Clumps Cancelled 11/20/19 08:30 Urine WBC (Reflex) Cancelled 11/20/19 08:30 Urine WBC Clumps Cancelled 11/20/19 08:30 Squamous Epi Cells Auto Cancelled 11/20/19 08:30 U Non-Squamous Epis Auto Cancelled 11/20/19 08:30 Calcium Carbonate Cryst Cancelled 11/20/19 08:30 Calcium Phosphate Cryst Cancelled 11/20/19 08:30 Calcium Oxalate Cr Auto Cancelled 11/20/19 08:30 Leucine Crystals Cancelled 11/20/19 08:30 Cystine Crystals Cancelled 11/20/19 08:30 Uric Acid Cryst (Auto) Cancelled 11/20/19 08:30 Triple Phos Cryst (Auto) Cancelled 11/20/19 08:30 Tyrosine Crystals Cancelled 11/20/19 08:30 Amorphous Sediment Auto Cancelled 11/20/19 08:30 Cellular Casts Cancelled 11/20/19 08:30 Epithelial Casts (Auto) Cancelled 11/20/19 08:30 Fatty Casts Cancelled 11/20/19 08:30 Granular Casts (Auto) Cancelled 11/20/19 08:30 Waxy Casts (Auto) Cancelled 11/20/19 08:30 Broad Casts Cancelled 11/20/19 08:30 RBC Casts (Auto) Cancelled 11/20/19 08:30 WBC Casts (Auto) Cancelled 11/20/19 08:30 Urine Mucus (Auto) Cancelled 11/20/19 08:30 U Trichomonas (Auto) Cancelled 11/20/19 08:30 Ur Yeast w Hyphae Cancelled 11/20/19 08:30 Urine Yeast (Budding) Cancelled 11/20/19 08:30 Ur 24 Hour Volume 1540 mL 11/19/19 08:18 Urine Creatinine 60.9 mg/dL (15-278) 11/19/19 08:18 Ur Creatinine mg/24hr 0.9 mg/day (0.8-2.0) 11/19/19 08:18 Ur Albumin 24 Hour 12.8 % (.) 11/19/19 08:18 Ur Total Protein 24 Hr 614 mg/24 hr (30-150) H 11/19/19 08:18 Protein/Creatinin Ratio 0.9 mg/mg (0.0-0.2) H 11/18/19 23:10 Urine Total Protein 39.9 mg/dL (Not Estab.) 11/19/19 08:18 Urine Albumin 23.5 % (.) 11/18/19 23:10 U Pknts-1-Xjfbuhuh 2.4 % (.) 11/19/19 08:18 U Htkua-3-Aeysyeoa 12.5 % (.) 11/19/19 08:18 U Beta Globulin 28.7 % (.) 11/19/19 08:18 U Gamma Globulin 43.5 % (.) 11/19/19 08:18 U Random M-Klever (%) Not Observed % (Not Observ) 11/18/19 23:10 U PEP M-Klever % 24 Hr Not Observed % (Not Observ) 11/19/19 08:18 U PEP M-Klever 24 Hr TNP 11/19/19 08:18 Urine PEP Interpret Comment (.) 11/19/19 08:18 Urine PEP Note Comment (.) 11/19/19 08:18 Urine Ascorbic Acid Cancelled 11/20/19 08:30 Albumin (CORINA) 3.2 g/dL (2.9-4.4) 11/19/19 01:30 Rheumatoid Factor < 8.6 IU/mL (<12.0) 11/18/19 21:50 Anti-Nuclear Antibody Positive (Negative) A 11/20/19 04:20 MANJINDER Comment Comment (.) 11/20/19 04:20 Anti-sm/[employer]OP[employer]GER Abs 0.8 AI (0.0-0.9) 11/20/19 04:20 SS-A/Ro Antibody >8.0 AI (0.0-0.9) H 11/20/19 04:20 SS-B/La Antibody >8.0 AI (0.0-0.9) H 11/20/19 04:20 [employer]ES AND BUSINESS DEVELOPMENT MANAGER Antibody 0.4 AI (0.0-0.9) 11/20/19 04:20 Double Strand DNA Ab >300 IU/mL (0-9) H 11/20/19 04:20 11/18/19 21:50 Troponin I 0.021 Impressions: Lumbar Spine X-Ray 11/18/19 20:40 IMPRESSION: No acute lumbar findings are seen. Renal Ultrasound 11/19/19 00:00 IMPRESSION: Essentially unremarkable exam. Chest X-Ray 11/19/19 00:32 IMPRESSION: No traumatic abnormality. copyright 2010 [employer]- All Rights Reserved Pelvis X-Ray 11/19/19 00:33 IMPRESSION: No fracture or dislocation. copyright 2011 [employer]- All Rights Reserved Skeletal Survey 11/20/19 00:00 IMPRESSION: Negative bone survey. Stroke Is this a Stroke Patient?: No Acute Heart Failure Is this a Heart Failure Patient?: No
[2019-11-23 14:44] VITALS: BP 149/75
== END 2019-11-23 15:10 | disposition home or self-care (01) | DRG 546 ==
LOC: ER 19:54 → EH 11-19 01:16 → 4N 11-19 03:45
PROVIDERS: ADMIT Family Medicine; ATTEND Family Medicine
DX: M32.15 Tubulo-interstitial nephropathy in systemic lupus erythematosus (principal); N17.9 Acute kidney failure, unspecified; E83.52 Hypercalcemia; E88.09 Other disorders of plasma-protein metabolism, not elsewhere classified; D64.9 Anemia, unspecified; E87.5 Hyperkalemia; G56.00 Carpal tunnel syndrome, unspecified upper limb; M10.9 Gout, unspecified; M25.541 Pain in joints of right hand; M25.542 Pain in joints of left hand; I25.10 Atherosclerotic heart disease of native coronary artery without angina pectoris; Z79.899 Other long term (current) drug therapy; Z23 Encounter for immunization
CPT/HCPCS: 36415; 71045; 72110; 72170; 76775; 77075; 80048; 80053; 81001; 82140; 82150; 82550; 82570; 82607; 82728; 82746; 83036; 83540; 83550; 83690; 83735; 83970; 84156; 84166; 84439; 84443; 84484; 84550; 85025; 85045; 85610; 85730; 86038; 86320; 86431; 87040; 90686; 93005; 93010; 99285; J1100; J1644; J1885; J2920; J3490; J7030

== ENCOUNTER → 2019-12-05 | Outpatient (CLI) | payer BC ==
[2019-12-05 09:57] LABS: ABSOLUTE EOSINOPHILS # (AUTO) 0.1 10^3/uL (0.0-0.6); ABSOLUTE LYMPHOCYTES (AUTO) 1.1 10^3/uL (0.5-4.7); ABSOLUTE MONOCYTES (AUTO) 0.1 10^3/uL (0.1-1.4); ABSOLUTE NEUT (AUTO) 1.7 10^3/uL (1.7-8.2); BASOPHILS % (AUTO) 0.3 % (0-2); EOSINOPHILS % (AUTO) 1.8 % (0-6); HEMATOCRIT 29.4 % (36.0-47.0); LYMPHOCYTES % (AUTO) 37.1 % (13-45); MEAN CORPUSCULAR HEMOGLOBIN 30.4 pg (27.0-33.4); MEAN CORPUSCULAR VOLUME 89 fl (80-97); MONOCYTES % (AUTO) 4.3 % (3-13); PLATELET COUNT 202 10^3/uL (150-450); RED BLOOD COUNT 3.29 10^6/uL (3.72-5.28); RED CELL DISTRIBUTION WIDTH 13.3 % (11.5-14.0); SEGMENTED NEUTROPHILS % (AUTO) 56.5 % (42-78); TOTAL CELLS COUNTED % (AUTO) 100 %; WHITE BLOOD COUNT 3.1 10^3/uL (4.0-10.5)
[2019-12-05 10:09] LABS: ALBUMIN 3.3 g/dL (3.5-5.0); ALKALINE PHOSPHATASE 60 U/L (38-126); ANION GAP 9 (5-19); ASPARTATE AMINO TRANSFERASE 31 U/L (14-36); BILIRUBIN,DIRECT 0.2 mg/dL (0.0-0.4); BILIRUBIN,TOTAL 0.3 mg/dL (0.2-1.3); BLOOD UREA NITROGEN 19 mg/dL (7-20); CALCIUM 9.2 mg/dL (8.4-10.2); CARBON DIOXIDE 25 mmol/L (22-30); CHLORIDE 109 mmol/L (98-107); CHOLESTEROL 212.73 mg/dL (0-200); GLUCOSE 96 mg/dL (75-110); POTASSIUM 4.2 mmol/L (3.6-5.0); TOTAL PROTEIN 7.4 g/dL (6.3-8.2); TRIGLYCERIDES 105 mg/dL (<150)
[2019-12-05 10:20] LABS: DIRECT LDL 110 mg/dL (<100)
== END ==
LOC: OD 08:37
PROVIDERS: ATTEND Physician Assistant
DX: E78.5 Hyperlipidemia, unspecified (principal); M32.8 Other forms of systemic lupus erythematosus; R73.01 Impaired fasting glucose
CPT/HCPCS: 36415; 80053; 80061; 83036; 85025

== ENCOUNTER → 2020-01-08 | Outpatient (CLI) | payer BC ==
[2020-01-08 13:38] LABS: IRON(TIBC) 62.8 ug/dL (37-170)
--- NOTE | 2020-01-09 09:43 | RADIOLOGY REPORT (SQ) ---
EXAM DESCRIPTION: CHEST PA/LATERAL IMAGES COMPLETED DATE/TIME: 01/08/2020 12:34 pm REASON FOR STUDY: SOB COMPARISON: 11/19/2019 EXAM PARAMETERS: NUMBER OF VIEWS: two views TECHNIQUE: Digital Frontal and Lateral radiographic views of the chest acquired. RADIATION DOSE: NA LIMITATIONS: none FINDINGS: LUNGS AND PLEURA: Limited opacification in the middle lobe. MEDIASTINUM AND HILAR STRUCTURES: No masses or contour abnormalities. HEART AND VASCULAR STRUCTURES: Heart normal size. No evidence for failure. BONES: No acute findings. HARDWARE: None in the chest. OTHER: No other significant finding. IMPRESSION: Limited airspace disease in the middle lobe, atelectasis versus pneumonia. TECHNICAL DOCUMENTATION: JOB ID: [id number] 2010 [employer]- All Rights Reserved Reading location - IP/workstation name: [email or web address]
[2020-01-09 14:13] LABS: HEMATOCRIT 30.7 % (36.0-47.0); HEMOGLOBIN 10.3 g/dL (12.0-15.5); MEAN CORPUSCULAR HEMOGLOBIN 28.9 pg (27.0-33.4); MEAN CORPUSCULAR HGB CONC 33.4 g/dL (32.0-36.0); MEAN CORPUSCULAR VOLUME 87 fl (80-97); PLATELET COUNT 169 10^3/uL (150-450); RED BLOOD COUNT 3.55 10^6/uL (3.72-5.28); RED CELL DISTRIBUTION WIDTH 13.8 % (11.5-14.0); WHITE BLOOD COUNT 4.8 10^3/uL (4.0-10.5)
[2020-01-09 14:30] LABS: ALBUMIN 3.8 g/dL (3.5-5.0); ALKALINE PHOSPHATASE 65 U/L (38-126); ANION GAP 12 (5-19); ASPARTATE AMINO TRANSFERASE 21 U/L (14-36); BILIRUBIN,DIRECT 0.1 mg/dL (0.0-0.4); BILIRUBIN,TOTAL 0.3 mg/dL (0.2-1.3); BLOOD UREA NITROGEN 38 mg/dL (7-20); CALCIUM 10.1 mg/dL (8.4-10.2); CARBON DIOXIDE 22 mmol/L (22-30); CHLORIDE 108 mmol/L (98-107); GLUCOSE 107 mg/dL (75-110); POTASSIUM 4.6 mmol/L (3.6-5.0); TOTAL PROTEIN 8.7 g/dL (6.3-8.2)
[2020-01-09 14:40] LABS: ABSOLUTE LYMPHOCYTES# (MANUAL) 1.7 10^3/uL (0.5-4.7); ABSOLUTE MONOCYTES # (MANUAL) 0.1 10^3/uL (0.1-1.4); BAND NEUTROPHILS % (MANUAL) 2 % (3-5); BASOPHILS % (MANUAL) 0 % (0-2); EOSINOPHILS % (MANUAL) 2 % (0-6); LYMPHOCYTES % (MANUAL) 31 % (13-45); MONOCYTES % (MANUAL) 2 % (3-13); SEGMENTED NEUTROPHILS % (MAN) 59 % (42-78); TOTAL CELLS COUNTED 100
[2020-01-09 14:42] LABS: PLATELET COMMENT ADEQUATE
[2020-01-09 14:51] LABS: ERYTHROCYTE SEDIMENTATION RATE 66 mm/hr (0-30)
== END ==
LOC: OD 11:46
PROVIDERS: ATTEND Physician Assistant
DX: R06.02 Shortness of breath (principal); D64.9 Anemia, unspecified
CPT/HCPCS: 36415; 71046; 80053; 82728; 83540; 83550; 83880; 85025; 85379; 85652